=== PATIENT | female | born 1975 | race Caucasian/White ===

== ENCOUNTER → 2017-12-04 | Outpatient (CLI) | payer BC, OTHER ==
--- NOTE | 2017-12-05 09:16 | Diagnostic Imaging Report ---
Indication: Routine screening. Comparison is made to prior exam from 11/29/2015 and 09/02/2013. 2-D and 3-D bilateral screening mammography was performed with CAD. Both breasts remain heterogeneously dense, limiting the sensitivity of mammography. The parenchymal pattern is stable. No mass or malignant-appearing microcalcifications are seen. The axilla are unremarkable. Impression: BI-RADS category 1. No mammographic features suspicious for malignancy are identified. ACR BI-RADS Category 1: Negative. Result letter will be mailed to the patient. Note: At least 10% of breast cancer is not imaged by mammography. Dictated by: Dictated on workstation # [id number]
== END ==
LOC: RAD 14:51
PROVIDERS: ATTEND Nurse Practitioner Family
DX: Z12.31 Encounter for screening mammogram for malignant neoplasm of breast (principal)
CPT/HCPCS: 77067

== ENCOUNTER → 2019-04-30 | Outpatient (CLI) | payer BC ==
--- NOTE | 2019-04-30 17:47 | Diagnostic Imaging Report ---
EXAMINATION: Digital mammogram bilateral screening. INDICATION: Screening. COMPARISON: This study was compared to the prior exams of 12/04/2017, 11/29/2015, and 09/02/2013. At this time, there are no current complaints. The current study was also evaluated with a Computer Aided Detection (CAD) system. 3-D tomosynthesis was also performed and reviewed. FINDINGS: The fibroglandular tissue in both breasts is dense. This does limit the sensitivity of this exam. In the medial retroareolar region of the left breast, approximately 3 cm from the nipple, there is a 1 cm fairly well-defined oval density. This is best imaged on the tomographic views. This finding is most likely a benign process, but as it was not clearly evident on the prior study, I would recommend that a compression view of this area be obtained in the CC and MLO projections for further study. Ultrasound should also be performed. The right breast is unchanged. IMPRESSION: Additional mammographic views and ultrasound of the left breast would be recommended for further study. ACR BI-RADS Category 0: Incomplete. (Needs additional imaging evaluation). Result letter will be mailed to the patient. Note: At least 10% of breast cancer is not imaged by mammography. Dictated by: Dictated on workstation # [id number]
== END ==
LOC: RAD 07:56
PROVIDERS: ATTEND Nurse Practitioner Family
DX: Z12.31 Encounter for screening mammogram for malignant neoplasm of breast (principal)
CPT/HCPCS: 77067

== ENCOUNTER → 2019-05-05 | Outpatient (CLI) | payer BC ==
--- NOTE | 2019-05-05 14:05 | Diagnostic Imaging Report ---
INDICATION: Left breast density. Patient presents for additional views. COMPARISON: Correlation is made with the screening study from 04/30/2019. TECHNIQUE: Unilateral left 2D and 3D diagnostic mammography was performed including spot compression CC and ML views as well as a conventional 90 degree lateral view. FINDINGS: Additional views confirm the presence of a slightly ovoid circumscribed nodule in the retroareolar left breast slightly medial. This is 3 cm from the nipple. This has a benign appearance and likely represents a small cyst. No other masses are seen. IMPRESSION: Circumscribed density in the retroareolar and slightly medial left breast. Further evaluation with ultrasound is recommended and will be performed today. ACR BI-RADS Category 0: Incomplete. (Needs additional imaging evaluation). Result letter will be mailed to the patient. Note: At least 10% of breast cancer is not imaged by mammography. Dictated by: Dictated on workstation # [id number]
--- NOTE | 2019-05-05 14:15 | Diagnostic Imaging Report ---
INDICATION: Left breast density. This study is performed for further evaluation. COMPARISON: Correlation is made with the diagnostic mammogram from earlier this same day and the screening mammogram from 04/30/2019. FINDINGS: Sonographic interrogation of the retroareolar and slightly outer left breast was performed. There is a simple cyst at the 9 o'clock location of the left breast 2 cm from the nipple measuring 11 mm x 8 mm x 10 mm. This correlates in size and location to the mammographic density. No other mass is detected. IMPRESSION: Simple cyst in the retroareolar 9 o'clock location of the left breast corresponding with the mammographic density. The patient may return to routine annual screening mammography. ACR BI-RADS Category 2: Benign findings. Dictated by: Dictated on workstation # [id number]
== END ==
LOC: RAD 13:16
PROVIDERS: ATTEND Nurse Practitioner Family
DX: N60.02 Solitary cyst of left breast (principal)
CPT/HCPCS: 76642

== ENCOUNTER → 2020-05-03 | Outpatient (CLI) | payer BC ==
--- NOTE | 2020-05-03 12:54 | Diagnostic Imaging Report ---
INDICATION: Routine screening. Comparison is made with prior mammogram 04/30/2019 and 12/04/2017. 2-D and 3-D bilateral screening mammography was performed with CAD. Both breasts are heterogeneously dense, limiting the sensitivity of mammography. Overall parenchymal pattern appears stable. No spiculated mass or malignant appearing microcalcifications are seen. Axillae are unremarkable. IMPRESSION: BI-RADS Category 1 No mammographic features suspicious for malignancy are identified. ACR BI-RADS Category 1: Negative. Result letter will be mailed to the patient. Note: At least 10% of breast cancer is not imaged by mammography. Dictated by: Dictated on workstation # [id number]
== END ==
LOC: RAD 09:45
PROVIDERS: ATTEND Obstetrics & Gynecology
DX: Z12.31 Encounter for screening mammogram for malignant neoplasm of breast (principal)
CPT/HCPCS: 77063; 77067

== ENCOUNTER 2021-03-14 00:45 | Inpatient (IN) | payer BC ==
[~2021-03-14] VITALS: Ht 160 cm; Wt 89.2 kg
[2021-03-14] MEDS ORDERED: NORG1TAB75 PO (00:59)
[2021-03-14] MEDS ORDERED: ONDA-105 PO (00:59)
[2021-03-14] MEDS ORDERED: DEXA0.5T PO (00:59)
[2021-03-14] MEDS ORDERED: RT-ALBUINH INH (00:59)
[2021-03-14] MEDS ORDERED: RT-ALBUTEROL HFA 8.5 GM INHALER IH STA (01:55)
[2021-03-14] MEDS ORDERED: LACTATED RINGERS 1,000 ML IV ONE (02:00)
[2021-03-14] MEDS ORDERED: ONDANSETRON 4 MG/2 ML (SDV) Z0FRAN IVP ONE (02:00)
[2021-03-14 02:25] LABS: BASOPHILS % (AUTO) 0 % (0-10); EOSINOPHILS % (AUTO) 0 % (0-10); HEMATOCRIT 41 % (35-52); HEMOGLOBIN 13.6 g/dL (11.5-16.0); LYMPHOCYTES # (AUTO) 0.7 10^3/uL (1.0-4.0); LYMPHOCYTES % (AUTO) 21 % (12-44); MEAN CORPUSCULAR HEMOGLOBIN 31 pg (25-34); MEAN CORPUSCULAR HGB CONC 33 g/dL (32-36); MEAN CORPUSCULAR VOLUME 93 fL (80-99); MEAN PLATELET VOLUME 10.5 fL (9.0-12.2); MONOCYTES # (AUTO) 0.2 10^3/uL (0.0-1.0); MONOCYTES % (AUTO) 7 % (0-12); NEUTROPHILS # (AUTO) 2.3 10^3/uL (1.8-7.8); NEUTROPHILS % (AUTO) 71 % (42-75); PLATELET COUNT 252 10^3/uL (130-400); WHITE BLOOD COUNT 3.3 10^3/uL (4.3-11.0)
[2021-03-14 02:39] LABS: ALBUMIN 3.7 GM/DL (3.2-4.5); POTASSIUM 4.1 MMOL/L (3.6-5.0)
[2021-03-14 02:40] LABS: CALCIUM 8.6 MG/DL (8.5-10.1)
[2021-03-14 02:42] LABS: TOTAL PROTEIN 6.5 GM/DL (6.4-8.2)
[2021-03-14 02:43] LABS: BILIRUBIN,TOTAL 0.3 MG/DL (0.1-1.0)
[2021-03-14 02:45] LABS: CREATININE SERUM 0.73 MG/DL (0.60-1.30)
[2021-03-14 02:48] LABS: MAGNESIUM 2.1 MG/DL (1.6-2.4)
[2021-03-14] MEDS ORDERED: HOLD METFORMIN - RECEIVED CONTRAST 20 ML VIAL IV SCH (03:15)
[2021-03-14] MEDS ORDERED: NS 100 ML (IVPB) BAG IV ONE (03:15)
[2021-03-14] MEDS ORDERED: IOHEXOL 350 MG/ML 100 ML (OMNIPAQUE 350) VIAL IV ONE (03:15)
[2021-03-14] MEDS ORDERED: AZITHROMYCIN INJECTION 500 MG in NS (IVPB) 250 ML IV ONE (04:45)
--- NOTE | 2021-03-14 05:21 | ED General ---
General Chief Complaint: COVID19 Suspect/Confirmed Stated Complaint: COVID+ 03-10-,SOB,POSS FEVER,COUGH Nursing Triage Note: covid + 03/10/21, increased soa tonight. Source of Information: Patient Exam Limitations: No Limitations History of Present Illness Date Seen by Provider: Mar 14, 2021 Time Seen by Provider: 01:50 Initial Comments This 45-year-old woman presents to the emergency room with complaints of increased shortness of breath and nausea and vomiting after being diagnosed with COVID-19 on March 10. She was having trouble sleeping due to the shortness of breath. She has some chest pain when coughing and some discomfort in her upper back. She has not been monitoring her oxygen saturations at home. Saturations on initial assessment of fluctuating in the 91 to 93% range. She has been prescribed steroids and an inhaler from the clinic. She has monoclonal antibody therapy scheduled for . She did not receive a COVID-19 vaccine because she "heard too many horror stories about the vaccine". Allergies and Home Medications Allergies Coded Allergies: No Known Drug Allergies (Verified , 12/22/07) Patient Home Medication List Home Medication List Reviewed: Yes Albuterol Sulfate (Proventil Hfa) 6.7 Gm Hfa.aer.ad, (Reported) Entered as Reported by: HERMINIO SAUCEDO on 03/14/2158 Last Action: Reviewed Dexamethasone (Dexamethasone) 0.5 Mg Tablet, (Reported) Entered as Reported by: HERMINIO SAUCEDO on 03/14/2158 Last Action: Held Norgestimate-Ethinyl Estradiol (Estarylla 0.25-0.035 mg Tablet) 1 Each Tablet, (Reported) Entered as Reported by: HERMINIO SAUCEDO on 03/14/2158 Last Action: Held Ondansetron HCl (Ondansetron HCl) 4 Mg Tablet, (Reported) Entered as Reported by: HERMINIO SAUCEDO on 03/14/2158 Last Action: Reviewed Review of Systems Review of Systems Constitutional: fever EENTM: no symptoms reported Respiratory: see HPI Cardiovascular: no symptoms reported Gastrointestinal: see HPI Genitourinary: no symptoms reported : No Musculoskeletal: see HPI Skin: no symptoms reported Psychiatric/Neurological: No Symptoms Reported Hematologic/Lymphatic: No Symptoms Reported Immunological/Allergic: no symptoms reported Past Yqldhvw-Utgzvd-Awbzem Hx Patient Social History Tobacco Use?: No Use of E-Cig and/or Vaping dev: No Substance use?: No Alcohol Use?: No Pt feels they are or have been: No Past Medical History Surgery/Hospitalization HX: covid +03/10/21 Surgeries: No Respiratory: Yes (COVID-, February 2021) Cardiac: No Neurological: No : No Genitourinary: No Gastrointestinal: No Musculoskeletal: No Endocrine: No HEENT: No Cancer: No Psychosocial: No Physical Exam Vital Signs Vital Signs - First Documented 03/14/21 00:55 Temp 37.6 Pulse 115 Resp 20 B/P (MAP) 137/96 (110) Pulse Ox 92 O2 Delivery Room Air Capillary Refill : Less Than 3 Seconds Height, Weight, BMI Height: '" Weight: lbs. oz. 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, 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 Norm as Tested Skin: Normal Color, Warm/Dry Progress/Results/Core Measures Suspected Sepsis SIRS Temperature: Pulse: 115 Respiratory Rate: 20 Laboratory Tests 03/14/21 02:09: White Blood Count 3.3L Blood Pressure 137 /96 Mean: 110 Laboratory Tests 03/14/21 02:09: Creatinine 0.73, Platelet Count 252, Total Bilirubin 0.3 Results/Orders Lab Results Laboratory Tests Test 03/14/21 02:09 Range/Units White Blood Count 3.3 L 4.3-11.0 10^3/uL Red Blood Count 4.42 3.80-5.11 10^6/uL Hemoglobin 13.6 11.5-16.0 g/dL Hematocrit 41 35-52 % Mean Corpuscular Volume 93 80-99 fL Mean Corpuscular Hemoglobin 31 25-34 pg Mean Corpuscular Hemoglobin Concent 33 32-36 g/dL Red Cell Distribution Width 12.6 10.0-14.5 % Platelet Count 252 130-400 10^3/uL Mean Platelet Volume 10.5 9.0-12.2 fL Immature Granulocyte % (Auto) 0 % Neutrophils (%) (Auto) 71 42-75 % Lymphocytes (%) (Auto) 21 12-44 % Monocytes (%) (Auto) 7 0-12 % Eosinophils (%) (Auto) 0 0-10 % Basophils (%) (Auto) 0 0-10 % Neutrophils # (Auto) 2.3 1.8-7.8 10^3/uL Lymphocytes # (Auto) 0.7 L 1.0-4.0 10^3/uL Monocytes # (Auto) 0.2 0.0-1.0 10^3/uL Eosinophils # (Auto) 0.0 0.0-0.3 10^3/uL Basophils # (Auto) 0.0 0.0-0.1 10^3/uL Immature Granulocyte # (Auto) 0.0 0.0-0.1 10^3/uL D-Dimer 0.68 H 0.00-0.49 UG/ML Sodium Level 139 135-145 MMOL/L Potassium Level 4.1 3.6-5.0 MMOL/L Chloride Level 103 98-107 MMOL/L Carbon Dioxide Level 22 21-32 MMOL/L Anion Gap 14 5-14 MMOL/L Blood Urea Nitrogen 7 7-18 MG/DL Creatinine 0.73 0.60-1.30 MG/DL Estimat Glomerular Filtration Rate 87 BUN/Creatinine Ratio 10 Glucose Level 100 70-105 MG/DL Calcium Level 8.6 8.5-10.1 MG/DL Corrected Calcium 8.8 8.5-10.1 MG/DL Magnesium Level 2.1 1.6-2.4 MG/DL Total Bilirubin 0.3 0.1-1.0 MG/DL Aspartate Amino Transf (AST/SGOT) 40 H 5-34 U/L Alanine Aminotransferase (ALT/SGPT) 48 0-55 U/L Alkaline Phosphatase 81 40-136 U/L C-Reactive Protein High Sensitivity 7.35 H 0.00-0.50 MG/DL Total Protein 6.5 6.4-8.2 GM/DL Albumin 3.7 3.2-4.5 GM/DL Procalcitonin 0.05 <0.10 NG/ML Serum Test, Qualitative NEGATIVE NEGATIVE My Orders Orders - DAVEY PLATA MD Cbc With Automated Diff (03/14/21 01:55) Comprehensive Metabolic Panel (03/14/21 01:55) Hs C Reactive Protein (03/14/21 01:55) Fibrin Degradation Products (03/14/21 01:55) Procalcitonin (Pct) (03/14/21 01:55) Magnesium (03/14/21 01:55) Ed Iv/Invasive Line Start (03/14/21 01:55) Lactated Ringers (Lr 1000 Ml Iv Solution (03/14/21 02:00) Ondansetron Injection (Zofran Injectio (03/14/21 02:00) Albuterol Inhaler (Albuterol) (03/14/21 01:55) Hcg,Qualitative Serum (03/14/21 01:59) Ct Angio Chest W (03/14/21 02:50) Iohexol Injection (Omnipaque 350 Mg/Ml 1 (03/14/21 03:15) Received Contrast (Hold Metformin- Contr (03/14/21 03:15) Ns (Ivpb) (Sodium Chloride 0.9% Ivpb Bag (03/14/21 03:15) Dexamethasone Injection (Decadron Inje (03/14/21 04:45) Azithromycin Injection (Zithromax Inject (03/14/21 04:45) Medications Given in ED Current Medications Medications Dose Ordered Sig/Trey Route Start Time Stop Time Status Last Admin Dose Admin Azithromycin 500 mg/Sodium Chloride 250 ml @ 250 mls/hr ONCE ONCE IV 03/14/21 04:45 03/14/21 05:44 DC 03/14/21 05:34 250 MLS/HR Dexamethasone Sodium Phosphate 6 mg ONCE ONCE IV 03/14/21 04:45 03/14/21 04:47 DC 03/14/21 05:34 6 MG Iohexol 100 ml ONCE ONCE IV 03/14/21 03:15 03/14/21 03:17 DC 03/14/21 03:36 100 ML Lactated Ringer's 1,000 ml @ 0 mls/hr Q0M ONCE IV 03/14/21 02:00 03/14/21 02:01 DC 03/14/21 02:13 0 MLS/HR Ondansetron HCl 8 mg ONCE ONCE IVP 03/14/21 02:00 03/14/21 02:01 DC 03/14/21 02:13 8 MG Sodium Chloride 100 ml ONCE ONCE IV 03/14/21 03:15 03/14/21 03:17 DC 03/14/21 03:36 80 ML Vital Signs/I&O 03/14/21 00:55 Temp 37.6 Pulse 115 Resp 20 B/P (MAP) 137/96 (110) Pulse Ox 92 O2 Delivery Room Air Capillary Refill : Less Than 3 Seconds Blood Pressure Mean: 110 Progress Note : Time: 05:25 Progress Note Patient was experiencing borderline hypoxia early in her ER stay. This reason D-dimer was added to the evaluation. D-dimer was mildly elevated and she subsequently underwent CT angiogram. Covid pneumonia was noted but there was no evidence of pulmonary embolus. During the course of her evaluation her oxygen saturations trended downward. She was eventually persistently in the 89 to 91% range despite using an inhaler. I became increasingly uncomfortable with the thought of her returning home with declining oxygen saturations. We discussed options which included attempting to obtain outpatient oxygen support for home use versus admission. Since she appears to be in a declining status, she and I agree that admission is in her best interest. I have discussed the situation with Dr. Salazar. Patient is being treated with dexamethasone and a azithromycin. Oxygen was supplied at 2 L/min nasal cannula. This improved her oxygen saturations to the mid 90s and she was feeling much improved with oxygen support. Nausea was treated with Zofran and she was given a liter of IV fluid. Patient requests full CODE STATUS. Diagnostic Imaging Diagonstic Imaging: CT Plain Films/CT/US/NM/MRI: chest Comments CT angiogram of the chest reviewed by me and stat rad report reviewed. There were scattered opacities consistent with Covid pneumonia. No evidence of pulmonary embolus. Departure Communication (Admissions) Time/Spoke to Admitting Phy: 04:20 Dr. Salazar Impression Primary Impression: Pneumonia due to COVID-19 virus Additional Impressions: Nausea & vomiting Qualified Codes: R11.2 - Nausea with vomiting, unspecified Hypoxia Disposition: ADMITTED INPATIENT Condition: Stable Admissions Decision to Admit Reason: Admit from ER (General) Decision to Admit/Date: Mar 14, 2021 Time/Decision to Admit Time: 04:15 Departure-Patient Inst. Referrals: EDSON SALAZAR MD (PCP/Family) Primary Care Physician Copy Copies To 1: EDSON SALAZAR MD, JOSHUA T MD Mar 14, 2021 05:21
--- NOTE | 2021-03-14 05:36 | Diagnostic Imaging Report ---
PROCEDURE: CT angiography of the chest with contrast. TECHNIQUE: Multiple contiguous axial images were obtained through the chest after uneventful bolus administration of intravenous contrast. 3D reconstructed CTA MIP acquisitions were also performed. Auto Exposure Controls were utilized during the CT exam to meet ALARA standards for radiation dose reduction. INDICATION: Shortness of breath There are patchy alveolar infiltrates in both lungs. There are no effusions or pneumothoraces. There is no hilar or mediastinal lymphadenopathy. There is no evidence of right ventricular strain. There are no pulmonary emboli. Aorta is unremarkable. IMPRESSION: Multifocal patchy alveolar infiltrates in the periphery of both lungs typical of Covid pneumonia. No evidence for pulmonary embolism. I agree with preliminary interpretation. Dictated by: Dictated on workstation # [id number]
[2021-03-14] MEDS ORDERED: RT-ALBUTEROL HFA 8.5 GM INHALER IH PRN ×2 (08:30→11:00)
[2021-03-14] MEDS ORDERED: ONDANSETRON 4 MG/2 ML (SDV) Z0FRAN IV PRN (08:30)
[2021-03-14] MEDS ORDERED: ACETAMINOPHEN 325 MG TABLET PO PRN (08:30)
--- NOTE | 2021-03-14 08:48 | History & Physical ---
RASTA ESTRADA MED STUDENT 03/14/21 0848: History of Present Illness History of Present Illness Reason for visit/HPI Pt is a 45y/o F known to Dr. Salazar through clinic who presented to the ER this morning with cc increasing SOB and nausea. Pt first had cough and SOB on 03/07, then was subsequently diagnosed with COVID-19 on 03/10. Pts SOB got worse last night - waking her from sleep with increased nausea. This caused her to go to the ER. Her O2 sat at ER was 91-93% on room, after albuterol neb O2 decreased slighly to 89-91% on room. Pt had elevated D-dimer - subsequent CTA ruled-out PE, and confirmed COVID PNA. Her O2 sat was stable in mid-90s on 2LPM - pt was given IV decadron, zithromax, and zofran. Pt was subsequently admitted to the gen/surg floor due to new onset O2 requirement. During my counter this morning pt was without respiratory distress or intercostal retractions. Pt appeared comfortable on 2LPM. Pt states she had some chest pain that is only exacerbated by coughing, not with deep inspiration. Pt denies headache, constipation, diarrhea, palpitations or dysuria. Date of Admission Mar 14, 2021 at 05:13 Date Seen by a Provider: Mar 14, 2021 Time Seen by a Provider: 08:15 I consulted on this patient on 03/14/21 08:40 Attending Physician Edson Salazar MD Admitting Physician Edson Salazar MD Consult Allergies and Home Medications Allergies Coded Allergies: No Known Drug Allergies (Verified , 03/14/21) Patient Home Medication List Albuterol Sulfate (Proventil Hfa) 6.7 Gm Hfa.aer.ad, 1-2 PUFF INH Q4H PRN for SHORTNESS OF BREATH, (Reported) Entered as Reported by: HERMINIO SAUCEDO on 03/14/2158 Last Action: Held Dexamethasone (Dexamethasone) 0.5 Mg Tablet, 0.5 MG PO BID, (Reported) Entered as Reported by: HERMINIO SAUCEDO on 03/14/2158 Last Action: Reviewed Fesoterodine Fumarate (Toviaz) 4 Mg Tab.sr.24h, 4 MG PO 1800 W/DINNER, (Reported) Entered as Reported by: DARCY HOLGUIN on 9/22/21 1132 Last Action: Held Ibuprofen (Ibuprofen) 200 Mg Capsule, 400-600 MG PO Q8H PRN for PAIN-MILD (1-4) OR TEMPATURE, (Reported) Entered as Reported by: DARCY HOLGUIN on 03/14/211131 Last Action: Held Nitrofurantoin Macrocrystal (Nitrofurantoin) 100 Mg Capsule, 100 MG PO 1800 W/DINNER, (Reported) Entered as Reported by: DARCY HOLGUIN on 03/14/211131 Last Action: Held Norgestimate-Ethinyl Estradiol (Estarylla 0.25-0.035 mg Tablet) 1 Each Tablet, 1 EA PO 1800, (Reported) Entered as Reported by: HERMINIO SAUCEDO on 03/14/2158 Last Action: Reviewed Ondansetron HCl (Ondansetron HCl) 4 Mg Tablet, 4 MG PO Q6H PRN for NAUSEA/ VOMITING-1ST LINE, (Reported) Entered as Reported by: HERMINIO SAUCEDO on 03/14/2158 Last Action: Held Past Rottlrm-Nbsalq-Tfhlee Hx Patient Social History Tobacco Use?: No Use of E-Cig and/or Vaping dev: No Substance use?: No Alcohol Use?: No Pt feels they are or have been: No Immunizations Up To Date Tetanus Booster (TDap): Unknown Current Status Advance Directives: No Communicates: Verbally Primary Language: [place] Preferred Spoken Language: [place] Implanted or Applied Medical D: None Review of Systems Constitutional: No diaphoresis, No dizziness, No fever, No weakness EENTM: No hearing loss, No vision loss Respiratory: cough, dyspnea on exertion; No hemoptysis; short of breath Cardiovascular: chest pain (only during coughing spells ); No Hx of Intervention, No palpitations, No syncope Gastrointestinal: No abdominal pain, No constipation, No diarrhea Genitourinary: No dysuria, No incontinence : No Musculoskeletal: back pain (upper back pain ); No joint swelling Skin: No change in color, No lesions Psychiatric/Neurological: Denies Headache, Denies Tremors Psych: no AMS, no psychosis or change in mood. Physical Exam Vital Signs Vital Signs - First Documented 03/14/21 03/14/21 00:55 07:57 Temp 37.6 Pulse 115 Resp 20 B/P (MAP) 137/96 (110) Pulse Ox 92 O2 Delivery Room Air O2 Flow Rate 2.00 Capillary Refill : Less Than 3 Seconds Height, Weight, BMI Height: '" Weight: lbs. oz. kg; 33.00 BMI Method: Assessment/Plan Assessment and Plan Acute Hypoxemic Respiratory Failure 2/2 COVID-PNA New onset O2 requirement - pt stable on 2LPM this am. + COVID PCR 03/10. First Symptomatic 03/07. Pt not COVID vaccinated. s/p Decadron and Zithromax in ER IS, Albuterol neb, MAT protocol. Decadron PO 6mg qd. Hypercoagulable state 2/2 COVID-19 inf 0.68 D-dimer Neg 03/14 CTA 40mg Lovenox. DVT prophylaxis: 40mg lovenox, SCD, encouraged pt ambulation in room. GI prohylaxis: pepcid Lines and Tubes: PIV Admission Diagnosis Reason for Inpatient Admission: Acute Hypoxemic Respiratory Failure 2/2 COVID-PNA EDSON SALAZAR MD 03/14/212138: History of Present Illness History of Present Illness Reason for visit/HPI PT IS A 45 Y/O FEMALE WHO IS KNOWN TO MY CLINIC. SHE PRESENTED TO THE HOSPITAL AFTER HAVING AN ACUTE EPISODE OF SHORTNESS OF BREATH WITH NAUSEA LAST NIGHT. SHE WAS FIRST STRUCK ILL WITH COVID SYMPTOMS AROUND 03/07/2021, DIAGNOSED WITH COVID ON 03/10/2021. UPON EVALUATION IN THE ER SHE WAS FOUND TO HAVE AN OXYGEN SATURATION OF 91%, AND AFTER A NEBULIZER TREATMENT HER OXYGEN DROPPED TO 89%. PT WAS ALSO FOUND TO HAVE AN ELEVATED D-DIMER - NEGATIVE CTA. THIS MORNING SHE REPORTS THAT SHE FEELS BETTER THAN ON ADMISSION, JUST EXTREMELY FATIGUED. SHE DENIES ABDOMINAL PAIN, NAUSEA, CHEST PAIN, HAS BEEN HAVING ISSUES FOR A FEW MONTHS WITH HER MENSTRUAL CYCLES, AND HAS BEEN TAKING HER CONTROL REGULARLY. Date of Admission 03/14/2021 Date Seen by a Provider: Mar 14, 2021 Time Seen by a Provider: 08:55 Attending Physician EDSON SALAZAR MD Admitting Physician EDSON SALAZAR MD Allergies and Home Medications Allergies Coded Allergies: No Known Drug Allergies (Verified , 03/14/21) Patient Home Medication List Home Medication List Reviewed: Yes Albuterol Sulfate (Proventil Hfa) 6.7 Gm Hfa.aer.ad, 1-2 PUFF INH Q4H PRN for SHORTNESS OF BREATH, (Reported) Entered as Reported by: HERMINIO SAUCEDO on 03/14/2158 Last Action: Held Dexamethasone (Dexamethasone) 0.5 Mg Tablet, 0.5 MG PO BID, (Reported) Entered as Reported by: HERMINIO SAUCEDO on 03/14/2158 Last Action: Reviewed Fesoterodine Fumarate (Toviaz) 4 Mg Tab.sr.24h, 4 MG PO 1800 W/DINNER, (Reported) Entered as Reported by: DARCY HOLGUIN on 03/14/211131 Last Action: Held Ibuprofen (Ibuprofen) 200 Mg Capsule, 400-600 MG PO Q8H PRN for PAIN-MILD (1-4) OR TEMPATURE, (Reported) Entered as Reported by: DARCY HOLGUIN on 03/14/211131 Last Action: Held Nitrofurantoin Macrocrystal (Nitrofurantoin) 100 Mg Capsule, 100 MG PO 1800 W/DINNER, (Reported) Entered as Reported by: DARCY HOLGUIN on 03/14/211131 Last Action: Held Norgestimate-Ethinyl Estradiol (Estarylla 0.25-0.035 mg Tablet) 1 Each Tablet, 1 EA PO 1800, (Reported) Entered as Reported by: HERMINIO SAUCEDO on 03/14/2158 Last Action: Reviewed Ondansetron HCl (Ondansetron HCl) 4 Mg Tablet, 4 MG PO Q6H PRN for NAUSEA/VOMITING-1ST LINE, (Reported) Entered as Reported by: HERMINIO SAUCEDO on 03/14/2158 Last Action: Held Past Bnojwez-Fksyiv-Gvaeba Hx Patient Social History Marrital Status: Number of Children: 1 Number of living children: 1 Living Status: LIVES AT HOME WITH SPOUSE AND SON Employed/Student: employed ([employer]) Tobacco Use?: No Smoking Status: Never a Smoker Use of E-Cig and/or Vaping dev: No Substance use?: No Seasonal Allergies Seasonal Allergies: No Current Status status: No status: No Communicates: Verbally Primary Language: [place] Preferred Spoken Language: [place] Is interpretation needed?: No Implanted or Applied Medical D: None Past Medical History Currently Using CPAP: No Currently Using BIPAP: No Sexually Transmitted Disease: No HIV/AIDS: No PT HAS NOT HAD SURGERY, NO OVERALL HEALTH ISSUES Family Medical History Reviewed Nursing Family Hx Hypertension Review of Systems Constitutional: No diaphoresis; fever (INTERMITTENT), malaise EENTM: No hearing loss, No vision loss, No hoarseness, No throat pain, No throat swelling Respiratory: cough, dyspnea on exertion; No hemoptysis; short of breath Cardiovascular: No chest pain (only during coughing spells ), No Hx of Intervention, No palpitations Gastrointestinal: No abdominal pain, No constipation, No diarrhea, No nausea, No vomiting Genitourinary: No dysuria : No Musculoskeletal: back pain (upper back pain ); No joint swelling; muscle weakness Skin: No lesions, No rash Psychiatric/Neurological: Denies Anxiety, Denies Depressed, Denies Headache All Other Systems Reviewed Negative Unless Noted: Yes Physical Exam General Appearance: WD/WN, Mild Distress, Other Eyes: Bilateral Eye Normal Inspection, Bilateral Eye PERRL, Bilateral Eye EOMI HEENT: PERRL/EOMI, Pharynx Normal Neck: Full Range of Motion, Normal Inspection, Non Tender, Supple Respiratory: Chest Non Tender, No Accessory Muscle Use, No Respiratory Distress, Crackles, Decreased Breath Sounds Cardiovascular: Regular Rate, Rhythm, Normal Peripheral Pulses Gastrointestinal: Normal Bowel Sounds, No Organomegaly, No Pulsatile Mass, Non Tender, Soft Rectal: Deferred Back: Normal Inspection, No CVA Tenderness, No Vertebral Tenderness Extremity: Normal Capillary Refill, Normal Inspection, Normal Range of Motion, Non Tender, No Calf Tenderness, No Pedal Edema Neurologic/Psychiatric: Alert, Oriented x3, No Motor/Sensory Deficits, Normal 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 (BASED ON PROTOCOL, EVERARDO DOES NOT QUALIFY FOR OTHER TREATMENT CONSIDERATIONS AT THIS TIME) - ANTICIPATE PT TO BE IN HOSPITAL FOR AT LEAST ANOTHER 48 - 72 HOURS. HYPOCOAGULABLE STATE DUE TO CHRONIC HORMONE USE, COVID INFECTION - LOVENOX AND SCD'S - ADVISED PT THAT WE WILL HOLD HER CONTROL FOR THE NEXT FEW MONTHS WEAKNESS - WILL START AMBULATING IN ROOM MYALGIAS - SHOULD IMPROVE WITH HYDRATION DVT PROPHYLAXIS WITH LOVENOX AND SCD'S GI PROPHYLAXIS WITH PEPCID Admission Diagnosis ACUTE RESPIRATORY DISTRESS DUE TO COVID-19 INFECTION COUGH COVID PNEUMONIA HYPOXIA HYPOCOAGULABLE STATE DUE TO CHRONIC HORMONE USE, COVID INFECTION WEAKNESS MYALGIAS Admission Status: Inpatient Order (span 2 midnights) Reason for Inpatient Admission: INPT ADMISSION FOR COVID WILL REQUIRE AT LEAST 48 - 72 HOURS FOR IV STEROIDS, BREATHING TREATMENTS AND STABILIZATION. Supervisory-Addendum Brief Verification & Attestation Participated in pt care: history, MDM, physical Personally performed: exam, history, MDM, supervision of care Care discussed with: Medical Student Procedures: n/a Results interpretation: Verified all documentation SEE MY DOCUMENTATION FOR FULL DETAILS RASTA ESTRADA MED STUDENT Mar 14, 2021 08:48 EDSON SALAZAR MD Mar 14, 2021 21:39
[2021-03-14] MEDS: LACTATED RINGERS 1,000 ML IV SCH ×2 (10:00→18:37)
[2021-03-14] MEDS: FAMOTIDINE 20 MG (PEPCID) TABLET PO SCH ×2 (10:00→19:39)
[2021-03-14] MEDS: ENOXAPARIN 40 MG/0.4 ML (LOVENOX) SYR SC SCH (10:00)
[2021-03-14 10:47] VITALS: BP 115/79
[2021-03-14] MEDS ORDERED: FESO4TAB PO (11:32)
[2021-03-14] MEDS ORDERED: NITR100C PO (11:32)
[2021-03-14] MEDS ORDERED: IBUP-2185 PO (11:32)
[2021-03-14 12:00] VITALS: BP_SYST 119
[2021-03-14 16:39] VITALS: BP 124/73
[2021-03-14 19:26] VITALS: BP 121/56
[2021-03-14] MEDS: RT-ALBUTEROL HFA 8.5 GM INHALER IH SCH (20:38)
[2021-03-15] VITALS: BP 116/66
[2021-03-15] MEDS: ACETAMINOPHEN 325 MG TABLET PO SCH ×3 (02:05→17:46)
[2021-03-15] MEDS: LACTATED RINGERS 1,000 ML IV SCH ×3 (03:42→22:24)
[2021-03-15 04:44] VITALS: BP 115/64
--- NOTE | 2021-03-15 07:17 | Diagnostic Imaging Report ---
INDICATION: Covid pneumonia. Frontal chest obtained at 04:10 a.m. There is no prior study for comparison. FINDINGS: Heart and mediastinal silhouette are normal in appearance. There is no pneumothorax or pleural fluid. There are patchy infiltrates in the perihilar regions on both sides, suspicious for pneumonia. These infiltrates are of moderate severity. IMPRESSION: Patchy perihilar infiltrates are present compatible with pneumonia. There is no pneumothorax or pleural fluid. Follow-up is recommended. Dictated by: Dictated on workstation # [id number]
[2021-03-15] MEDS: RT-ALBUTEROL HFA 8.5 GM INHALER IH SCH ×2 (07:26→19:13)
[2021-03-15 08:00] VITALS: BP 122/59
[2021-03-15] MEDS: AZITHROMYCIN 250 MG/NS 250 ML IVPB IV SCH ×2 (09:31)
[2021-03-15] MEDS: ENOXAPARIN 40 MG/0.4 ML (LOVENOX) SYR SC SCH (09:31)
[2021-03-15] MEDS: FAMOTIDINE 20 MG (PEPCID) TABLET PO SCH ×2 (09:31→22:22)
[2021-03-15 16:55] VITALS: BP 126/79
[2021-03-15 19:48] VITALS: BP 126/77
[2021-03-15] MEDS: MELATONIN 3 MG TABLET PO SCH (22:23)
[2021-03-16] VITALS (10 sets, daily range): BP systolic 85–123; BP diastolic 7–75
[2021-03-16] MEDS: ACETAMINOPHEN 325 MG TABLET PO SCH ×3 (00:46→16:23)
[2021-03-16] MEDS: PROMETHAZINE/ CODEINE SYRUP 5 ML UDC PO PRN ×2 (00:47→22:46)
[2021-03-16] MEDS: AZITHROMYCIN 250 MG/NS 250 ML IVPB IV SCH ×2 (09:40)
[2021-03-16] MEDS: ENOXAPARIN 40 MG/0.4 ML (LOVENOX) SYR SC SCH (09:40)
[2021-03-16] MEDS: FAMOTIDINE 20 MG (PEPCID) TABLET PO SCH ×2 (09:40→22:45)
[2021-03-16] MEDS: LACTATED RINGERS 1,000 ML IV SCH ×2 (10:08→22:45)
--- NOTE | 2021-03-16 10:11 | Progress Note ---
Subjective Subjective Date Seen by Provider: Mar 15, 2021 Time Seen by Provider: 08:50 PT REPORTS THAT SHE DID NOT HAVE A GOOD NIGHT LAST NIGHT. SHE STATES THAT SHE WAS HAVING INSOMNIA AND UNCOMFORTABLE, AND DID NOT SLEEP VERY MUCH LAST NIGHT. SHE STATES THAT SHE IS FEELING A LITTLE BIT BETTER THIS MORNING. SHE DENIES ABDOMINAL PAIN, NAUSEA, HAS NOT HAD A BOWEL MOVEMENT. SHE REPORTS THAT SHE IS ANXIOUS, NERVOUS ABOUT WHAT IS GOING TO HAPPEN TO HER PHYSICALLY FROM HAVING COVID. Review of Systems General: No Chills; Fatigue, Malaise, Appetite (DECREASED) HEENT: No Head Aches Pulmonary: Dyspnea, Cough Cardiovascular: No: Chest Pain, Palpitations Gastrointestinal: No: Nausea, Vomiting, Abdominal Pain, Diarrhea Genitourinary: No Dysuria; Frequency Musculoskeletal: No: back pain, leg pain Neurological: Weakness; No: Confusion All Other Systems Reviewed All Other Systems Reviewed: Yes Objective Exam Vital Signs Vital Signs Date Time Temp Pulse Resp B/P (MAP) Pulse Ox O2 Delivery O2 Flow Rate FiO2 03/16/21 09:22 91 Nasal Cannula 4.00 03/16/21 09:13 93 Nasal Cannula 3.00 03/16/21 09:10 92 Nasal Cannula 6.00 03/16/21 09:06 97 94 Nasal Cannula 6.00 03/16/21 09:00 37.3 111/75 (87) 91 OxyMask 10.00 03/16/21 08:55 93 71 117/71 (86) 86 OxyMask 10.00 03/16/21 08:53 93 OxyMask 10.00 03/16/21 08:52 91 OxyMask 15.00 03/16/21 08:50 37.6 75 85/40 (55) 89 Nasal Cannula 10.00 03/16/21 08:40 37.5 109 24 113/74 (87) 89 Nasal Cannula 3.00 03/16/21 03:59 36.3 92 20 123/70 (87) 95 Nasal Cannula 3.00 03/16/21 00:20 36.7 98 21 122/73 (89) 98 Nasal Cannula 3.00 03/15/21 20:00 Nasal Cannula 3.00 03/15/21 19:48 36.3 107 20 126/77 (93) 92 Nasal Cannula 3.00 03/15/21 19:13 95 Nasal Cannula 3.00 03/15/21 16:55 102 20 126/79 (95) 94 Nasal Cannula 3.00 03/15/21 12:00 104 18 95 Nasal Cannula 3.00 I & O 03/16/21 07:00 Intake Total 2160 ml Balance 2160 ml General Appearance: No Apparent Distress, WD/WN, Other (ANXIOUS) Eyes: Bilateral Eye Normal Inspection, Bilateral Eye PERRL, Bilateral Eye EOMI HEENT: PERRL/EOMI, Pharynx Normal Neck: Full Range of Motion, Normal Inspection, Non Tender, Supple Respiratory: Chest Non Tender, No Accessory Muscle Use, No Respiratory Distress, Crackles, Decreased Breath Sounds Cardiovascular: Regular Rate, Rhythm, Normal Peripheral Pulses Gastrointestinal: Normal Bowel Sounds, No Organomegaly, No Pulsatile Mass, Non Tender, Soft Rectal: Deferred Extremity: Normal Capillary Refill, Normal Inspection, Normal Range of Motion, Non Tender, No Calf Tenderness, No Pedal Edema Neurologic/Psychiatric: Alert, Oriented x3, No Motor/Sensory Deficits, Normal Mood/Affect, 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 Norm as Tested Skin: Normal Color, Warm/Dry Lymphatic: No Adenopathy Results Lab Laboratory Tests 03/16/21 08:55: Glucometer 102 Assessment/Plan Assessment/Plan Admission Dx ACUTE RESPIRATORY DISTRESS DUE TO COVID-19 INFECTION COUGH COVID PNEUMONIA HYPOXIA HYPOCOAGULABLE STATE DUE TO CHRONIC HORMONE USE, COVID INFECTION WEAKNESS MYALGIAS Assessment and Plan ACUTE RESPIRATORY DISTRESS DUE TO COVID-19 INFECTION COUGH COVID PNEUMONIA HYPOXIA 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 (BASED ON PROTOCOL, EVERARDO DOES NOT QUALIFY FOR OTHER TREATMENT CONSIDERATIONS AT THIS TIME) - ANTICIPATE PT TO BE IN HOSPITAL FOR AT LEAST ANOTHER 48 - 72 HOURS. HYPOCOAGULABLE STATE DUE TO CHRONIC HORMONE USE, COVID INFECTION - LOVENOX AND SCD'S - ADVISED PT THAT WE WILL HOLD HER CONTROL FOR THE NEXT FEW MONTHS WEAKNESS - WILL START AMBULATING IN ROOM MYALGIAS - SHOULD IMPROVE WITH HYDRATION DVT PROPHYLAXIS WITH LOVENOX AND SCD'S GI PROPHYLAXIS WITH PEPCID Admission Dx ACUTE RESPIRATORY DISTRESS DUE TO COVID-19 INFECTION COUGH COVID PNEUMONIA HYPOXIA HYPOCOAGULABLE STATE DUE TO CHRONIC HORMONE USE, COVID INFECTION WEAKNESS MYALGIAS Clinical Quality Measures Admission Status Admission Dx ACUTE RESPIRATORY DISTRESS DUE TO COVID-19 INFECTION COUGH COVID PNEUMONIA HYPOXIA HYPOCOAGULABLE STATE DUE TO CHRONIC HORMONE USE, COVID INFECTION WEAKNESS MYALGIAS EDSON FIORE MD Mar 16, 2021 10:11
--- NOTE | 2021-03-16 10:18 | Progress Note ---
Subjective Subjective Date Seen by Provider: Mar 16, 2021 Time Seen by Provider: 09:00 45 Y/O FEMALE WHO IS KNOWN TO ME FROM CLINIC. SHE PRESENTED TO THE HOSPITAL WITH COVID ON DAY 7 OF SYMPTOMS AND DAY 5 OF CONFIRMED DIAGNOSIS. - PHONE CALL AT 0850 THIS MORNING REPORTING THAT THE PATIENT WAS DOING WELL, GOT UP TO THE RESTROOM, FELT LIKE SHE WAS GOING TO PASS OUT AND SHE WAS LOWERED TO THE TOILET, BP WAS IN THE 80/50'S, OXYGEN AROUND 83%, AND SHE WAS PLACED ON 10 LITERS OXYGEN AND HELPED BACK TO HER CHAIR AT BEDSIDE. BY THE TIME THIS LEMON PICKER WAS IN THE ROOM, THE PATIENT WAS BACK TO OXYGEN LEVEL OF 92% ON 3 LITERS, WITH EFFORT OF MOVEMENT SHE DROPPED TO 88% SO SHE WAS BUMPED UP TO 4LITERS. PT DENIES ACUTE CHEST PAIN, BUT DOES HAVE SHORTNESS OF BREATH WITH CONVERSATION. SHE DENIES LEG PAIN, OR SWELLING. SHE REPORTS A SIGNIFICANT COUGHING EPISODE LAST NIGHT, BUT OTHERWISE HAD BEEN FEELING ABOUT THE SAME LEVEL OF ILLNESS ON ADMISSION. Review of Systems General: No Chills; Fatigue, Malaise, Appetite (DECREASED) HEENT: No Head Aches Pulmonary: Dyspnea, Cough Cardiovascular: No: Chest Pain, Palpitations Gastrointestinal: No: Nausea, Vomiting, Abdominal Pain, Diarrhea Genitourinary: No Dysuria; Frequency Musculoskeletal: No: back pain, leg pain Neurological: Weakness; No: Confusion All Other Systems Reviewed All Other Systems Reviewed: Yes Objective Exam Vital Signs Vital Signs Date Time Temp Pulse Resp B/P (MAP) Pulse Ox O2 Delivery O2 Flow Rate FiO2 03/16/21 09:22 91 Nasal Cannula 4.00 03/16/21 09:13 93 Nasal Cannula 3.00 03/16/21 09:10 92 Nasal Cannula 6.00 03/16/21 09:06 97 94 Nasal Cannula 6.00 03/16/21 09:00 37.3 111/75 (87) 91 OxyMask 10.00 03/16/21 08:55 93 71 117/71 (86) 86 OxyMask 10.00 03/16/21 08:53 93 OxyMask 10.00 03/16/21 08:52 91 OxyMask 15.00 03/16/21 08:50 37.6 75 85/40 (55) 89 Nasal Cannula 10.00 03/16/21 08:40 37.5 109 24 113/74 (87) 89 Nasal Cannula 3.00 03/16/21 03:59 36.3 92 20 123/70 (87) 95 Nasal Cannula 3.00 03/16/21 00:20 36.7 98 21 122/73 (89) 98 Nasal Cannula 3.00 03/15/21 20:00 Nasal Cannula 3.00 03/15/21 19:48 36.3 107 20 126/77 (93) 92 Nasal Cannula 3.00 03/15/21 19:13 95 Nasal Cannula 3.00 03/15/21 16:55 102 20 126/79 (95) 94 Nasal Cannula 3.00 03/15/21 12:00 104 18 95 Nasal Cannula 3.00 I & O 03/16/21 07:00 Intake Total 2160 ml Balance 2160 ml General Appearance: WD/WN, Moderate Distress, Other (ANXIOUS) Eyes: Bilateral Eye Normal Inspection, Bilateral Eye PERRL, Bilateral Eye EOMI HEENT: PERRL/EOMI, Pharynx Normal Neck: Full Range of Motion, Normal Inspection, Non Tender, Supple Respiratory: Chest Non Tender, No Accessory Muscle Use, No Respiratory Distress, Crackles, Decreased Breath Sounds Cardiovascular: Regular Rate, Rhythm, Normal Peripheral Pulses Gastrointestinal: Normal Bowel Sounds, No Organomegaly, No Pulsatile Mass, Non Tender, Soft Rectal: Deferred Extremity: Normal Capillary Refill, Normal Inspection, Normal Range of Motion, Non Tender, No Calf Tenderness, No Pedal Edema; No Calf Tenderness, No Inflammation, No Slow Capillary Refill, No Swelling Neurologic/Psychiatric: Alert, Oriented x3, Other (ANXIOUS) Skin: Pallor Lymphatic: No Adenopathy Results Lab Laboratory Tests 03/16/21 08:55: Glucometer 102 Assessment/Plan Assessment/Plan Admission Dx ACUTE RESPIRATORY DISTRESS DUE TO COVID-19 INFECTION COUGH COVID PNEUMONIA HYPOXIA HYPOCOAGULABLE STATE DUE TO CHRONIC HORMONE USE, COVID INFECTION WEAKNESS MYALGIAS Assessment and Plan ACUTE RESPIRATORY DISTRESS DUE TO COVID-19 INFECTION COUGH COVID PNEUMONIA HYPOXIA HYPOCOAGULABLE STATE DUE TO CHRONIC HORMONE USE, COVID INFECTION WEAKNESS MYALGIAS NEAR SYNCOPE HYPOTENSION WORSENING ACUTE RESPIRATORY DISTRESS DUE TO COVID-19 INFECTION WITH COUGH AND COVID PNEUMONIA WITH ACUTE HYPOXIA - PT ON DEXAMETHASONE, BREATHING TREATMENTS, AND AZITHROMYCIN ADDING ROCEPHIN TODAY ADDED ACTEMRA TODAY WELL WITH ACUTE EPISODE OF HYPOXIA - PT TO GO DOWN FOR STAT CT ANGIO OF CHEST TO LOOK FOR PULMONARY EMBOLISM - CONSULT WITH MANAGER OF REGULATORY AFFAIRS - DR. GERA HENSON - DISCUSSION OF CASE - AGREED WITH STAT CT ANGIO, ACTEMRA, CONTINUED STEROIDS, IF SYMPTOMS WORSEN WILL TRANSFER TO ICU. HYPOCOAGULABLE STATE DUE TO CHRONIC HORMONE USE, COVID INFECTION - LOVENOX AND SCD'S - ADVISED PT THAT WE WILL HOLD HER CONTROL FOR THE NEXT FEW MONTHS WEAKNESS - WAITING ON IMPROVED PULMONARY STATUS AT THIS TIME. MYALGIAS - SHOULD IMPROVE WITH HYDRATION ACUTELY WORSENING SYMPTOMS - I HAVE DISCUSSED THE PATIENT WITH HER SPOUSE, HE IS IN AGREEMENT WITH CURRENT MANAGEMENT PLAN, THANKFUL FOR THE PHONE CALL, REQUESTS UPDATES THINGS CHANGE. ADVISED PT AND SPOUSE THAT DR. MILLER IS CLINICAL LABORATORY TECHNOLOGIST FOR ME THIS WEEKEND. DVT PROPHYLAXIS WITH LOVENOX AND SCD'S GI PROPHYLAXIS WITH PEPCID Admission Dx ACUTE RESPIRATORY DISTRESS DUE TO COVID-19 INFECTION COUGH COVID PNEUMONIA HYPOXIA HYPOCOAGULABLE STATE DUE TO CHRONIC HORMONE USE, COVID INFECTION WEAKNESS MYALGIAS Clinical Quality Measures Admission Status Admission Dx ACUTE RESPIRATORY DISTRESS DUE TO COVID-19 INFECTION COUGH COVID PNEUMONIA HYPOXIA HYPOCOAGULABLE STATE DUE TO CHRONIC HORMONE USE, COVID INFECTION WEAKNESS MYALGIAS EDSON FIORE MD Mar 16, 2021 10:17
[2021-03-16] MEDS ORDERED: TOCILIZUMAB INJECTION (NON-FOR 600 MG in NS (IVPB) 70 ML IV ONE (10:45)
[2021-03-16 10:49] LABS: HEMATOCRIT 36 % (35-52); HEMOGLOBIN 11.5 g/dL (11.5-16.0); MEAN CORPUSCULAR HEMOGLOBIN 30 pg (25-34); MEAN CORPUSCULAR HGB CONC 32 g/dL (32-36); MEAN CORPUSCULAR VOLUME 94 fL (80-99); MEAN PLATELET VOLUME 9.9 fL (9.0-12.2); PLATELET COUNT 318 10^3/uL (130-400)
[2021-03-16] MEDS: RT-ALBUTEROL HFA 8.5 GM INHALER IH SCH ×2 (10:53→21:32)
--- NOTE | 2021-03-16 10:56 | Pulmonary Consultation ---
History of Present Illness History of Present Illness Date Seen by Provider: Mar 16, 2021 Time Seen by Provider: 10:15 Date of Admission Patient acknowledged, consented, and participated in this virtual visit which was conducted using real time audio/video. Thank you for asking us to see this patient for respiratory insufficiency and distress due to Covid pna. HPC: Recent events: Developed worsening hypoxia and hypotension this AM. Briefly required 10 LPM. Chest tightness. PMH: on BCPs. SH: smoking history N. FH: Non-contributory. No hx PEs. ROS: as in HPI. PE: Obese. VSS BP 117/71 RR O2 sat 96% on 4 LPM HEENT: No obvious masses, adenopathy or JVD. Chest: clear to auscultation. Diminished BS CV: RRR S1 S2 No murmur or added sounds. Abd: Non-tender. Bowel sounds Y. : Unremarkable. Gonzalez N. 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 No obvious focal findings. Extremities: Trace edema. Capillary refill < 3 seconds. Skin: unremarkable. Results: Elevated D-Dimer 0.68. Decreased WCC 3.3. CXR w B perihilar infilts. CTA Chest pending. A/P: Respiratory insufficiency/distress: Add Actemra. Available chart/ vitals / labs /images reviewed. Video assessment done using teleICU camera, rest of exam as per RN. Respiratory: Continue present management with Dex. Add Actemra 8 mg/kg IV. Monitor for increasing oxygenation needs and/or need for ICU transfer. Would consider transfer to ICU if O2 needs escalate rapidly, BP persistently dropping or CTA chest is positive for PE. Discussed with GIBRAN Washburn and Dr. Saucedo. Asked RN to reach out to eICU if any questions or concerns later. Time spent with patient/coordination of care with other health professionals (mins): 30 History of Present Illness See free text Allergies and Home Medications Allergies Coded Allergies: No Known Drug Allergies (Verified , 03/14/21) Home Medications Albuterol Sulfate 6.7 Gm Hfa.aer.ad, 1-2 PUFF INH Q4H PRN for SHORTNESS OF BREATH, (Reported) Dexamethasone 0.5 Mg Tablet, 0.5 MG PO BID, (Reported) FILLED 03-12-2021 #10/5 DAY SUPPLY Fesoterodine Fumarate 4 Mg Tab.sr.24h, 4 MG PO 1800 W/DINNER, (Reported) Ibuprofen 200 Mg Capsule, 400-600 MG PO Q8H PRN for PAIN-MILD (1-4) OR TEMPATURE, (Reported) Nitrofurantoin Macrocrystal 100 Mg Capsule, 100 MG PO 1800 W/DINNER, (Reported) Norgestimate-Ethinyl Estradiol 1 Each Tablet, 1 EA PO 1800, (Reported) Ondansetron HCl 4 Mg Tablet, 4 MG PO Q6H PRN for NAUSEA/VOMITING-1ST LINE, (Reported) Past Medical/Social/Family Hx Patient Social History Marrital Status: Number of Children: 1 Number of living children: 1 Living Status: LIVES AT HOME WITH SPOUSE AND SON Employed/Student: employed ([employer]) Tobacco Use?: No Smoking Status: Never a Smoker Smokeless Tobacco Frequency: Never a User Use of E-Cig and/or Vaping dev: No Substance use?: No Alcohol Use?: No Pt stated abuse/neglect: No Immunizations Up To Date Influenza Vaccine Up-to-Date: No; Not Current Tetanus Booster (TDap): Unknown Hepatitis A: No Hepatitis B: No TB Skin Test: None Current Status status: No status: No Advance Directives: No Communicates: Verbally Primary Language: Qatari Preferred Spoken Language: Qatari Is interpretation needed?: No Sensory deficits: Other Additional sensory deficits: N/A Implanted or Applied Medical D: None Past Medical History PT HAS NOT HAD SURGERY, NO OVERALL HEALTH ISSUES Review of Systems Constitutional: see HPI EENTM: see HPI Respiratory: see HPI Gastrointestinal: see HPI Genitourinary: see HPI Musculoskeletal: see HPI Skin: see HPI Psychiatric/Neurological: See HPI All Other Systems Reviewed Negative Unless Noted: Yes Sepsis Event Evaluation Height, Weight, BMI Height: '" Weight: lbs. oz. kg; 34.84 BMI Method: Exam Exam Patient acknowledged, consented, and participated in this virtual visit which was conducted using real time audio/video Vital Signs Date Time Temp Pulse Resp B/P (MAP) Pulse Ox O2 Delivery O2 Flow Rate FiO2 03/16/21 09:22 91 Nasal Cannula 4.00 03/16/21 09:13 93 Nasal Cannula 3.00 03/16/21 09:10 92 Nasal Cannula 6.00 03/16/21 09:06 97 94 Nasal Cannula 6.00 9/24/21 09:00 37.3 111/75 (87) 91 OxyMask 10.00 03/16/21 08:55 93 71 117/71 (86) 86 OxyMask 10.00 03/16/21 08:53 93 OxyMask 10.00 03/16/21 08:52 91 OxyMask 15.00 03/16/21 08:50 37.6 75 85/40 (55) 89 Nasal Cannula 10.00 03/16/21 08:40 37.5 109 24 113/74 (87) 89 Nasal Cannula 3.00 03/16/21 03:59 36.3 92 20 123/70 (87) 95 Nasal Cannula 3.00 03/16/21 00:20 36.7 98 21 122/73 (89) 98 Nasal Cannula 3.00 03/15/21 20:00 Nasal Cannula 3.00 03/15/21 19:48 36.3 107 20 126/77 (93) 92 Nasal Cannula 3.00 03/15/21 19:13 95 Nasal Cannula 3.00 03/15/21 16:55 102 20 126/79 (95) 94 Nasal Cannula 3.00 03/15/21 12:00 104 18 95 Nasal Cannula 3.00 I & O 03/16/21 07:00 Intake Total 2160 ml Balance 2160 ml Height & Weight Height: '" Weight: lbs. oz. kg; 34.84 BMI Method: General Appearance: No Apparent Distress, WD/WN, Other HEENT: PERRL/EOMI, Pharynx Normal Neck: Full Range of Motion, Normal Inspection, Non Tender, Supple Respiratory: Chest Non Tender, No Accessory Muscle Use, No Respiratory Distress, Crackles, Decreased Breath Sounds Cardiovascular: Regular Rate, Rhythm, Normal Peripheral Pulses Capillary Refill: Less Than 3 Seconds Extremity: Normal Capillary Refill, Normal Inspection, Normal Range of Motion, Non Tender, No Calf Tenderness, No Pedal Edema Neurologic/Psychiatric: Alert, Oriented x3, No Motor/Sensory Deficits, Normal Mood/Affect, drying 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
[2021-03-16 11:02] LABS: ALBUMIN 3.2 GM/DL (3.2-4.5); POTASSIUM 3.5 MMOL/L (3.6-5.0)
[2021-03-16 11:03] LABS: CALCIUM 8.4 MG/DL (8.5-10.1)
[2021-03-16 11:04] LABS: TOTAL PROTEIN 5.8 GM/DL (6.4-8.2)
[2021-03-16 11:06] LABS: BILIRUBIN,TOTAL 0.3 MG/DL (0.1-1.0)
[2021-03-16 11:08] LABS: CREATININE SERUM 0.7 MG/DL (0.60-1.30)
[2021-03-16] MEDS ORDERED: cefTRIAXone 1,000 MG in WATER (STERILE) FOR INJECTION 10 ML IV ONE (11:30)
--- NOTE | 2021-03-16 12:46 | Diagnostic Imaging Report ---
PROCEDURE: CT angiography of the chest with contrast. TECHNIQUE: Multiple contiguous axial images were obtained through the chest after uneventful bolus administration of intravenous contrast. 3D reconstructed CTA MIP acquisitions were also performed. Auto Exposure Controls were utilized during the CT exam to meet ALARA standards for radiation dose reduction. INDICATION: Worsening hypoxia, pneumonia and pulmonary embolism. COMPARISON: 03/14/2021 FINDINGS: Heart size remains stable. There is no pericardial effusion. Pulmonary arteries and aorta are grossly normal. There is no embolism. There are worsening bilateral pulmonary infiltrates. This is most evident in the upper and lower lung zones. There is no pneumothorax or effusion. Osseous structures are unremarkable. Visualized upper abdominal solid organs are intact. There is a small hiatal hernia. IMPRESSION: 1. Overall slightly worsening bilateral pulmonary infiltrates. 2. No pulmonary embolism identified. 3. Small hiatal hernia. Dictated by: Dictated on workstation # [id number]
[2021-03-16] MEDS: MELATONIN 3 MG TABLET PO SCH (22:45)
[2021-03-17] VITALS (7 sets, daily range): BP systolic 100–140; BP diastolic 58–89
[2021-03-17] MEDS: ACETAMINOPHEN 325 MG TABLET PO SCH ×3 (01:26→17:43)
[2021-03-17] MEDS: LACTATED RINGERS 1,000 ML IV SCH ×3 (06:46→20:26)
[2021-03-17 07:35] LABS: HEMATOCRIT 37 % (35-52); HEMOGLOBIN 11.8 g/dL (11.5-16.0); MEAN CORPUSCULAR HEMOGLOBIN 30 pg (25-34); MEAN CORPUSCULAR HGB CONC 32 g/dL (32-36); MEAN CORPUSCULAR VOLUME 94 fL (80-99); PLATELET COUNT 368 10^3/uL (130-400); WHITE BLOOD COUNT 3.6 10^3/uL (4.3-11.0)
[2021-03-17 07:46] LABS: ALBUMIN 3.2 GM/DL (3.2-4.5)
[2021-03-17 07:48] LABS: CALCIUM 8.7 MG/DL (8.5-10.1)
[2021-03-17 07:51] LABS: BILIRUBIN,TOTAL 0.2 MG/DL (0.1-1.0)
[2021-03-17 07:53] LABS: CREATININE SERUM 0.6 MG/DL (0.60-1.30)
[2021-03-17] MEDS: LORazepam 0.5 MG (ATIVAN) TABLET PO PRN (08:38)
[2021-03-17] MEDS: cefTRIAXone 1,000 MG in WATER (STERILE) FOR INJECTION 10 ML IV SCH (08:38)
[2021-03-17] MEDS: ENOXAPARIN 40 MG/0.4 ML (LOVENOX) SYR SC SCH (08:38)
[2021-03-17] MEDS: FAMOTIDINE 20 MG (PEPCID) TABLET PO SCH ×2 (08:39→20:26)
[2021-03-17] MEDS: RT-ALBUTEROL HFA 8.5 GM INHALER IH SCH ×2 (08:42→21:07)
[2021-03-17 08:47] LABS: ABG BASE EXCESS 2.9 MMOL/L (-2.5-2.5); ABG OXYGEN SATURATION 98 % (94-100); ABG PCO2 42 MMHG (35-45); ABG PH 7.43 (7.37-7.43); ABG PO2 87 MMHG (79-93); ABG TCO2 28.4 MMOL/L (21.0-31.0)
[2021-03-17 08:48] LABS: ALLENS TEST POSITIVE; INSPIRED O2 8 L; PATIENT TEMP 36.3; VENTILATOR NO
[2021-03-17] MEDS: AZITHROMYCIN 250 MG/NS 250 ML IVPB IV SCH ×2 (10:04)
--- NOTE | 2021-03-17 14:05 | Progress Note ---
Subjective Date Seen by a Provider: Mar 17, 2021 Time Seen by a Provider: 14:01 Subjective/Events-last exam Fwup COVID 19 pneumonia with acute respiratory distress. Had to be put on Vapotherm this morning. Currently proning and oxygen saturation has improved. CT angiogram of chest yesterday did not show PE but did show worsening infiltrates bilaterally. Objective Exam Vital Signs Date Time Temp Pulse Resp B/P (MAP) Pulse Ox O2 Delivery O2 Flow Rate FiO2 03/17/21 13:02 36.0 87 20 108/62 (77) 98 03/17/21 12:15 97 High Flow N/C 4.00 03/17/21 12:00 36.3 109 22 128/89 (102) 92 High Flow N/C 8.00 03/17/21 08:51 99 High Flow N/C 6.00 03/17/21 08:43 95 High Flow N/C 6.00 03/17/21 08:00 High Flow N/C 4.00 03/17/21 07:57 36.3 109 22 128/89 (102) 92 High Flow N/C 8.00 03/17/21 04:01 35.8 76 18 140/74 (96) 94 High Flow N/C 4.00 03/16/21 23:45 36.7 99 18 121/68 (85) 92 High Flow N/C 4.00 03/16/21 21:33 90 High Flow N/C 5.00 03/16/21 20:00 High Flow N/C 4.00 03/16/21 19:10 36.4 98 20 113/65 (81) 92 High Flow N/C 4.00 03/16/21 15:32 36.5 98 20 115/65 (82) 90 High Flow N/C 4.00 I & O 03/17/21 07:00 Intake Total 2452 ml Balance 2452 ml Capillary Refill : Less Than 3 Seconds General Appearance: No Apparent Distress Respiratory: Lungs Clear, Decreased Breath Sounds Cardiovascular: Regular Rate, Rhythm Extremity: Non Tender, No Calf Tenderness, No Pedal Edema Neurologic/Psychiatric: Alert, Oriented x3 Results Lab Laboratory Tests 03/17/21 07:05: White Blood Count 3.6L, Red Blood Count 3.89, Hemoglobin 11.8, Hematocrit 37, Mean Corpuscular Volume 94, Mean Corpuscular Hemoglobin 30, Mean Corpuscular Hemoglobin Concent 32, Red Cell Distribution Width 12.9, Platelet Count 368, Mean Platelet Volume 10.0, Sodium Level 143, Potassium Level 4.0, Chloride Level 108H, Carbon Dioxide Level 24, Anion Gap 11, Blood Urea Nitrogen 6L, Creatinine 0.60, Estimat Glomerular Filtration Rate 109, BUN/Creatinine Ratio 10, Glucose Level 107H, Calcium Level 8.7, Corrected Calcium 9.3, Total Bilirubin 0.2, Aspartate Amino Transf (AST/SGOT) 81H, Alanine Aminotransferase (ALT/SGPT) 91H, Alkaline Phosphatase 55, Total Protein 6.0L, Albumin 3.2 03/17/21 08:34: Blood Gas Puncture Site LEFT RADIAL, Blood Gas Patient Temperature 36.3, Arterial Blood pH 7.43, Arterial Blood Partial Pressure CO2 42, Arterial Blood Partial Pressure O2 87, Arterial Blood HCO3 27, Arterial Blood Total CO2 28.4, Arterial Blood Oxygen Saturation 98, Arterial Blood Base Excess 2.9H, Anish Test POSITIVE, Blood Gas Ventilator Setting NO, Blood Gas Inspired Oxygen 8 L Assessment/Plan Assessment/Plan Assess & Plan/Chief Complaint 1. Acute COVID-19 Pneumonia--on lovenox for DVT prophylaxis, dexamethasone and actemra, albuterol inhaler, IS, also being covered with rocephin and zithromax for secondary pneumonia 2. Acute Respiratory Distress--on Vapotherm but now proning and oxygen sa turation has imroved SHAHRZAD MILLER DO Mar 17, 2021 14:05
[2021-03-17] MEDS: PROMETHAZINE/ CODEINE SYRUP 5 ML UDC PO PRN (20:25)
[2021-03-17] MEDS: MELATONIN 3 MG TABLET PO SCH (20:26)
[2021-03-18] MEDS: ACETAMINOPHEN 325 MG TABLET PO SCH ×3 (00:57→18:49)
[2021-03-18 04:19] VITALS: BP 129/82
[2021-03-18 07:02] LABS: HEMATOCRIT 39 % (35-52); HEMOGLOBIN 12.7 g/dL (11.5-16.0); MEAN CORPUSCULAR HEMOGLOBIN 30 pg (25-34); MEAN CORPUSCULAR HGB CONC 33 g/dL (32-36); MEAN CORPUSCULAR VOLUME 93 fL (80-99); MEAN PLATELET VOLUME 9.6 fL (9.0-12.2); PLATELET COUNT 414 10^3/uL (130-400); WHITE BLOOD COUNT 5.7 10^3/uL (4.3-11.0)
[2021-03-18 07:12] LABS: ALBUMIN 3.1 GM/DL (3.2-4.5); POTASSIUM 4.1 MMOL/L (3.6-5.0)
[2021-03-18 07:13] LABS: CALCIUM 8.6 MG/DL (8.5-10.1)
[2021-03-18 07:14] LABS: TOTAL PROTEIN 5.8 GM/DL (6.4-8.2)
[2021-03-18 07:16] LABS: BILIRUBIN,TOTAL 0.3 MG/DL (0.1-1.0)
[2021-03-18 07:18] LABS: CREATININE SERUM 0.63 MG/DL (0.60-1.30)
[2021-03-18] MEDS: RT-ALBUTEROL HFA 8.5 GM INHALER IH SCH ×2 (08:02→20:46)
[2021-03-18 08:20] VITALS: BP 94/54
--- NOTE | 2021-03-18 08:43 | Diagnostic Imaging Report ---
History: COVID pneumonia COMPARISON: 03/15/2021 TECHNIQUE: Frontal view the chest FINDINGS: Lung volumes are normal. There are extensive patchy airspace opacities throughout the lungs bilaterally, increased on the right and stable on the left. There is no pleural effusion or pneumothorax. The cardiac silhouette is normal in size. IMPRESSION: 1. Marked bilateral airspace opacities, increased on the right and stable on the left. Report was faxed to Daniel/RN Infection Control by noah at 8:42am. Dictated by: Dictated on workstation # [id number]
[2021-03-18] MEDS: FAMOTIDINE 20 MG (PEPCID) TABLET PO SCH ×2 (08:54→22:10)
[2021-03-18] MEDS: cefTRIAXone 1,000 MG in WATER (STERILE) FOR INJECTION 10 ML IV SCH (08:54)
[2021-03-18] MEDS: ENOXAPARIN 40 MG/0.4 ML (LOVENOX) SYR SC SCH (08:54)
[2021-03-18] MEDS: AZITHROMYCIN 250 MG/NS 250 ML IVPB IV SCH ×2 (08:55)
--- NOTE | 2021-03-18 09:50 | Progress Note ---
Subjective Date Seen by a Provider: Mar 18, 2021 Time Seen by a Provider: 09:48 Subjective/Events-last exam Fwup COVID 19 pneumonia with acute respiratory distress. Doing well with proning. Tramadol helped back pain. Feels a little better today. Objective Exam Vital Signs Date Time Temp Pulse Resp B/P (MAP) Pulse Ox O2 Delivery O2 Flow Rate FiO2 03/18/21 08:36 High Flow N/C 4.00 03/18/21 08:20 36.0 61 20 94/54 (67) 92 High Flow N/C 5.00 03/18/21 08:02 94 High Flow N/C 5.00 03/18/21 04:19 36.8 87 18 129/82 (98) 96 High Flow N/C 5.00 03/17/21 23:59 36.2 79 21 131/79 (96) 96 High Flow N/C 5.00 03/17/21 21:07 97 High Flow N/C 4.00 03/17/21 20:00 High Flow N/C 4.00 03/17/21 19:37 35.5 110 55 113/76 (88) 99 High Flow N/C 3.00 03/17/21 15:30 36.0 87 20 100/58 (72) 94 High Flow N/C 3.00 03/17/21 13:02 36.0 87 20 108/62 (77) 98 3.00 03/17/21 12:15 97 High Flow N/C 4.00 03/17/21 12:00 36.3 109 22 128/89 (102) 92 High Flow N/C 8.00 I & O 03/18/21 07:00 Intake Total 620 ml Balance 620 ml Capillary Refill : Less Than 3 Seconds General Appearance: No Apparent Distress Respiratory: Lungs Clear, Decreased Breath Sounds Cardiovascular: Regular Rate, Rhythm Extremity: Non Tender, No Calf Tenderness, No Pedal Edema Neurologic/Psychiatric: Alert, Oriented x3 Results Lab Laboratory Tests 03/18/21 06:54: White Blood Count 5.7, Red Blood Count 4.19, Hemoglobin 12.7, Hematocrit 39, Mean Corpuscular Volume 93, Mean Corpuscular Hemoglobin 30, Mean Corpuscular Hemoglobin Concent 33, Red Cell Distribution Width 12.5, Platelet Count 414H, Mean Platelet Volume 9.6, Sodium Level 141, Potassium Level 4.1, Chloride Level 105, Carbon Dioxide Level 25, Anion Gap 11, Blood Urea Nitrogen 11, Creatinine 0.63, Estimat Glomerular Filtration Rate 103, BUN/Creatinine Ratio 17, Glucose Level 103, Calcium Level 8.6, Corrected Calcium 9.3, Total Bilirubin 0.3, Aspartate Amino Transf (AST/SGOT) 73H, Alanine Aminotransferase (ALT/SGPT) 110H, Alkaline Phosphatase 50, Total Protein 5.8L, Albumin 3.1L Assessment/Plan Assessment/Plan Assess & Plan/Chief Complaint 1. Acute COVID-19 Pneumonia--on lovenox for DVT prophylaxis, dexamethasone and actemra, albuterol inhaler, IS, also being covered with rocephin and zithromax for secondary pneumonia 2. Acute Respiratory Distress--back to [place] at 4L, SHAHRZAD Millan DO Mar 18, 2021 09:50
[2021-03-18 11:48] VITALS: BP 126/77
[2021-03-18] MEDS: LACTATED RINGERS 1,000 ML IV SCH (12:30)
[2021-03-18 15:28] VITALS: BP 128/75
[2021-03-18 20:23] VITALS: BP 120/77
[2021-03-18] MEDS: MELATONIN 3 MG TABLET PO SCH (22:10)
[2021-03-18] MEDS: PROMETHAZINE/ CODEINE SYRUP 5 ML UDC PO PRN (22:11)
[2021-03-18 23:54] VITALS: BP 110/65
[2021-03-19] VITALS (7 sets, daily range): BP systolic 106–129; BP diastolic 63–79
[2021-03-19] MEDS: ACETAMINOPHEN 325 MG TABLET PO SCH ×4 (01:10→18:47)
[2021-03-19 06:23] LABS: HEMATOCRIT 40 % (35-52); HEMOGLOBIN 12.8 g/dL (11.5-16.0); MEAN CORPUSCULAR HEMOGLOBIN 30 pg (25-34); MEAN CORPUSCULAR HGB CONC 32 g/dL (32-36); MEAN CORPUSCULAR VOLUME 94 fL (80-99); MEAN PLATELET VOLUME 9.6 fL (9.0-12.2); PLATELET COUNT 471 10^3/uL (130-400); WHITE BLOOD COUNT 4.2 10^3/uL (4.3-11.0)
[2021-03-19 06:39] LABS: ALBUMIN 3.2 GM/DL (3.2-4.5); BILIRUBIN,TOTAL 0.3 MG/DL (0.1-1.0); CALCIUM 8.7 MG/DL (8.5-10.1); CREATININE SERUM 0.62 MG/DL (0.60-1.30); POTASSIUM 3.7 MMOL/L (3.6-5.0); TOTAL PROTEIN 5.9 GM/DL (6.4-8.2)
[2021-03-19] MEDS ORDERED: dexAMETHasone 6 MG TAB (DECADRON) PO SCH (07:00)
[2021-03-19] MEDS: RT-ALBUTEROL HFA 8.5 GM INHALER IH SCH (07:27)
[2021-03-19] MEDS: ENOXAPARIN 40 MG/0.4 ML (LOVENOX) SYR SC SCH (09:01)
[2021-03-19] MEDS: cefTRIAXone 1,000 MG in WATER (STERILE) FOR INJECTION 10 ML IV SCH ×2 (09:01→09:04)
[2021-03-19] MEDS: AZITHROMYCIN 250 MG TAB (ZITHROMAX) PO SCH (09:01)
[2021-03-19] MEDS: FAMOTIDINE 20 MG (PEPCID) TABLET PO SCH ×2 (09:01→21:28)
[2021-03-19] MEDS ORDERED: LIDOCAINE 1% INJ 20 ML 20 ML VIAL INJ ONE (09:45)
[2021-03-19] MEDS: LORazepam 0.5 MG (ATIVAN) TABLET PO PRN (10:14)
[2021-03-19] MEDS: cefTRIAXone 1,000 MG VIAL IM SCH (10:15)
--- NOTE | 2021-03-19 14:52 | Progress Note ---
Subjective Subjective 45 Y/O FEMALE WHO IS KNOWN TO ME FROM CLINIC. SHE PRESENTED TO THE HOSPITAL WITH COVID ON DAY 7 OF SYMPTOMS AND DAY 5 OF CONFIRMED DIAGNOSIS. - PHONE CALL AT 0850 THIS MORNING REPORTING THAT THE PATIENT WAS DOING WELL, GOT UP TO THE RESTROOM, FELT LIKE SHE WAS GOING TO PASS OUT AND SHE WAS LOWERED TO THE TOILET, BP WAS IN THE 80/50'S, OXYGEN AROUND 83%, AND SHE WAS PLACED ON 10 LITERS OXYGEN AND HELPED BACK TO HER CHAIR AT BEDSIDE. BY THE TIME THIS AGRICULTURAL EQUIPMENT TEST ENGINEER WAS IN THE ROOM, THE PATIENT WAS BACK TO OXYGEN LEVEL OF 92% ON 3 LITERS, WITH EFFORT OF MOVEMENT SHE DROPPED TO 88% SO SHE WAS BUMPED UP TO 4LITERS. PT DENIES ACUTE CHEST PAIN, BUT DOES HAVE SHORTNESS OF BREATH WITH CONVERSATION. SHE DENIES LEG PAIN, OR SWELLING. SHE REPORTS A SIGNIFICANT COUGHING EPISODE LAST NIGHT, BUT OTHERWISE HAD BEEN FEELING ABOUT THE SAME LEVEL OF ILLNESS ON ADMISSION. Review of Systems General: No Chills; Fatigue, Malaise, Appetite (DECREASED) HEENT: No Head Aches Pulmonary: Dyspnea, Cough Cardiovascular: No: Chest Pain, Palpitations Gastrointestinal: No: Nausea, Vomiting, Abdominal Pain, Diarrhea Genitourinary: No Dysuria; Frequency Musculoskeletal: No: back pain, leg pain Neurological: Weakness; No: Confusion All Other Systems Reviewed All Other Systems Reviewed: Yes Objective Exam Vital Signs Vital Signs Date Time Temp Pulse Resp B/P (MAP) Pulse Ox O2 Delivery O2 Flow Rate FiO2 03/19/21 12:00 35.6 85 20 122/73 (89) 95 High Flow N/C 3.00 03/19/21 08:09 35.8 92 20 114/67 (83) 94 High Flow N/C 4.50 03/19/21 08:00 High Flow N/C 3.00 03/19/21 07:28 96 High Flow N/C 4.00 03/19/21 03:10 36.0 78 20 106/74 (85) 95 High Flow N/C 4.50 03/18/21 23:54 36.0 79 20 110/65 (80) 93 High Flow N/C 3.00 03/18/21 20:46 90 High Flow N/C 3.00 03/18/21 20:23 35.6 81 22 120/77 (91) 91 High Flow N/C 3.00 03/18/21 20:00 High Flow N/C 3.00 03/18/21 15:28 35.7 88 22 128/75 (92) 94 High Flow N/C 3.00 I & O 03/19/21 07:00 Intake Total 1360 ml Balance 1360 ml General Appearance: No Apparent Distress Eyes: Bilateral Eye Normal Inspection, Bilateral Eye PERRL, Bilateral Eye EOMI HEENT: PERRL/EOMI, Pharynx Normal Neck: Full Range of Motion, Normal Inspection, Non Tender, Supple Respiratory: Lungs Clear, Decreased Breath Sounds Cardiovascular: Regular Rate, Rhythm Gastrointestinal: Normal Bowel Sounds, No Organomegaly, No Pulsatile Mass, Non Tender, Soft Rectal: Deferred Extremity: Non Tender, No Calf Tenderness, No Pedal Edema Neurologic/Psychiatric: Alert, Oriented x3 Skin: Pallor Lymphatic: No Adenopathy Results Lab Laboratory Tests 03/19/21 06:05: White Blood Count 4.2L, Red Blood Count 4.28, Hemoglobin 12.8, Hematocrit 40, Mean Corpuscular Volume 94, Mean Corpuscular Hemoglobin 30, Mean Corpuscular Hemoglobin Concent 32, Red Cell Distribution Width 12.4, Platelet Count 471H, Mean Platelet Volume 9.6, Sodium Level 141, Potassium Level 3.7, Chloride Level 104, Carbon Dioxide Level 27, Anion Gap 10, Blood Urea Nitrogen 12, Creatinine 0.62, Estimat Glomerular Filtration Rate 105, BUN/Creatinine Ratio 19, Glucose Level 92, Calcium Level 8.7, Corrected Calcium 9.3, Total Bilirubin 0.3, Aspar sosa Amino Transf (AST/SGOT) 33, Alanine Aminotransferase (ALT/SGPT) 89H, Alkaline Phosphatase 52, Total Protein 5.9L, Albumin 3.2 Assessment/Plan Assessment/Plan Admission Dx ACUTE RESPIRATORY DISTRESS DUE TO COVID-19 INFECTION COUGH COVID PNEUMONIA HYPOXIA HYPOCOAGULABLE STATE DUE TO CHRONIC HORMONE USE, COVID INFECTION WEAKNESS MYALGIAS Assessment and Plan ACUTE RESPIRATORY DISTRESS DUE TO COVID-19 INFECTION COUGH COVID PNEUMONIA HYPOXIA HYPOCOAGULABLE STATE DUE TO CHRONIC HORMONE USE, COVID INFECTION WEAKNESS MYALGIAS NEAR SYNCOPE HYPOTENSION WORSENING ACUTE RESPIRATORY DISTRESS DUE TO COVID-19 INFECTION WITH COUGH AND COVID PNEUMONIA WITH ACUTE HYPOXIA - PT ON DEXAMETHASONE, BREATHING TREATMENTS, AND AZITHROMYCIN ADDING ROCEPHIN TODAY ADDED ACTEMRA TODAY WELL WITH ACUTE EPISODE OF HYPOXIA - PT TO GO DOWN FOR STAT CT ANGIO OF CHEST TO LOOK FOR PULMONARY EMBOLISM - CONSULT WITH PARTS COUNTER CLERK - DR. GERA HENSON - DISCUSSION OF CASE - AGREED WITH STAT CT ANGIO, ACTEMRA, CONTINUED STEROIDS, IF SYMPTOMS WORSEN WILL TRANSFER TO ICU. HYPOCOAGULABLE STATE DUE TO CHRONIC HORMONE USE, COVID INFECTION - LOVENOX AND SCD'S - ADVISED PT THAT WE WILL HOLD HER CONTROL FOR THE NEXT FEW MONTHS WEAKNESS - WAITING ON IMPROVED PULMONARY STATUS AT THIS TIME. MYALGIAS - SHOULD IMPROVE WITH HYDRATION ACUTELY WORSENING SYMPTOMS - I HAVE DISCUSSED THE PATIENT WITH HER SPOUSE, HE IS IN AGREEMENT WITH CURRENT MANAGEMENT PLAN, THANKFUL FOR THE PHONE CALL, REQUESTS UPDATES THINGS CHANGE. ADVISED PT AND SPOUSE THAT DR. MILLER IS COMPUTER METEOROLOGIST FOR ME THIS WEEKEND. DVT PROPHYLAXIS WITH LOVENOX AND SCD'S GI PROPHYLAXIS WITH PEPCID Admission Dx ACUTE RESPIRATORY DISTRESS DUE TO COVID-19 INFECTION COUGH COVID PNEUMONIA HYPOXIA HYPOCOAGULABLE STATE DUE TO CHRONIC HORMONE USE, COVID INFECTION WEAKNESS MYALGIAS Clinical Quality Measures Admission Status Admission Dx ACUTE RESPIRATORY DISTRESS DUE TO COVID-19 INFECTION COUGH COVID PNEUMONIA HYPOXIA HYPOCOAGULABLE STATE DUE TO CHRONIC HORMONE USE, COVID INFECTION WEAKNESS MYALGIAS EDSON FIORE MD Mar 19, 2021 14:52
--- NOTE | 2021-03-19 16:05 | Pulmonary Consultation ---
History of Present Illness History of Present Illness Date Seen by Provider: Mar 19, 2021 Time Seen by Provider: 15:59 History of Present Illness Has COVID, Dx made 03/07, having cough, temp, body aches, Not SOB until 03/13, now 3 lpm nasal cannula Did not get vaccine. Gets out of bed and has mild SOB On Decasron, Received tocilizumab, on IV azithromycin, Rocephin d dimer slightly high, no rise in WBC, non smoker PMH no asthma, DM, HTN, HLD, heart problems, CAROL Allergies and Home Medications Allergies Coded Allergies: No Known Drug Allergies (Verified , 03/14/21) Home Medications Albuterol Sulfate 6.7 Gm Hfa.aer.ad, 1-2 PUFF INH Q4H PRN for SHORTNESS OF BREATH, (Reported) Dexamethasone 0.5 Mg Tablet, 0.5 MG PO BID, (Reported) FILLED 03-12-2021 #10/5 DAY SUPPLY Fesoterodine Fumarate 4 Mg Tab.sr.24h, 4 MG PO 1800 W/DINNER, (Reported) Ibuprofen 200 Mg Capsule, 400-600 MG PO Q8H PRN for PAIN-MILD (1-4) OR TEMPATURE, (Reported) Nitrofurantoin Macrocrystal 100 Mg Capsule, 100 MG PO 1800 W/DINNER, (Reported) Norgestimate-Ethinyl Estradiol 1 Each Tablet, 1 EA PO 1800, (Reported) Ondansetron HCl 4 Mg Tablet, 4 MG PO Q6H PRN for NAUSEA/VOMITING-1ST LINE, (Reported) Past Medical/Social/Family Hx Patient Social History Marrital Status: Number of Children: 1 Number of living children: 1 Living Status: LIVES AT HOME WITH SPOUSE AND SON Employed/Student: employed ([employer]) Tobacco Use?: No Smoking Status: Never a Smoker Smokeless Tobacco Frequency: Never a User Use of E-Cig and/or Vaping dev: No Substance use?: No Alcohol Use?: No Pt stated abuse/neglect: No Immunizations Up To Date Influenza Vaccine Up-to-Date: No; Not Current Tetanus Booster (TDap): Unknown Hepatitis A: No Hepatitis B: No TB Skin Test: None Current Status status: No status: No Advance Directives: No Communicates: Verbally Primary Language: Martiniquais Preferred Spoken Language: Martiniquais Is interpretation needed?: No Sensory deficits: Other Additional sensory deficits: N/A Implanted or Applied Medical D: None Past Medical History PT HAS NOT HAD SURGERY, NO OVERALL HEALTH ISSUES Review of Systems Constitutional: see HPI EENTM: see HPI Respiratory: see HPI Cardiovascular: see HPI Gastrointestinal: No RUQ, No LUQ, No RLQ, No LLQ, No no symptoms reported, No see HPI, No abdominal pain, No constipation, No diarrhea, No dysphagia, No hematemesis, No heartburn, No jaundice, No loss of appetite, No melena, No nausea, No vomiting, No other Genitourinary: see HPI Musculoskeletal: see HPI Skin: see HPI Psychiatric/Neurological: See HPI Sepsis Event Evaluation Height, Weight, BMI Height: '" Weight: lbs. oz. kg; 34.84 BMI Method: Exam Exam Patient acknowledged, consented, and participated in this virtual visit which was conducted using real time audio/video Vital Signs Date Time Temp Pulse Resp B/P (MAP) Pulse Ox O2 Delivery O2 Flow Rate FiO2 03/19/21 12:00 35.6 85 20 122/73 (89) 95 High Flow N/C 3.00 03/19/21 08:09 35.8 92 20 114/67 (83) 94 High Flow N/C 4.50 03/19/21 08:00 High Flow N/C 3.00 03/19/21 07:28 96 High Flow N/C 4.00 03/19/21 03:10 36.0 78 20 106/74 (85) 95 High Flow N/C 4.50 03/18/21 23:54 36.0 79 20 110/65 (80) 93 High Flow N/C 3.00 03/18/21 20:46 90 High Flow N/C 3.00 03/18/21 20:23 35.6 81 22 120/77 (91) 91 High Flow N/C 3.00 03/18/21 20:00 High Flow N/C 3.00 I & O 03/19/21 06:59 Intake Total 1360 ml Balance 1360 ml Height & Weight Height: '" Weight: lbs. oz. kg; 34.84 BMI Method: General Appearance: No Apparent Distress HEENT: PERRL/EOMI, Pharynx Normal Neck: Full Range of Motion, Normal Inspection, Non Tender, Supple Respiratory: Decreased Breath Sounds, Rales, Other (crackles both lower lobes) Cardiovascular: Regular Rate, Rhythm Capillary Refill: Less Than 3 Seconds Extremity: Non Tender, No Calf Tenderness, No Pedal Edema Neurologic/Psychiatric: Alert, Oriented x3 Skin: Pallor Lymphatic: No Adenopathy Results Lab Laboratory Tests 03/18/21 06:54 03/19/21 06:05 Assessment/Plan Assessment/Plan Fairly extensive lung involvement on CXR and CT, would continue present meds, keep monitoring oxygenation, Fact that she in only on 3 lpm and feels she is improving is encouraging Will follow Time spent with patient (mins): 30 SHAKIR WARD MD Mar 19, 2021 16:05
[2021-03-19] MEDS: PROMETHAZINE/ CODEINE SYRUP 5 ML UDC PO PRN (21:27)
[2021-03-19] MEDS: MELATONIN 3 MG TABLET PO SCH (21:28)
[2021-03-20] MEDS: ACETAMINOPHEN 325 MG TABLET PO SCH ×2 (01:34→08:57)
[2021-03-20 04:00] VITALS: BP 136/86
[2021-03-20 06:04] LABS: HEMATOCRIT 42 % (35-52); HEMOGLOBIN 13.7 g/dL (11.5-16.0); MEAN CORPUSCULAR HEMOGLOBIN 30 pg (25-34); MEAN CORPUSCULAR HGB CONC 32 g/dL (32-36); MEAN CORPUSCULAR VOLUME 93 fL (80-99); MEAN PLATELET VOLUME 9.5 fL (9.0-12.2); PLATELET COUNT 483 10^3/uL (130-400); WHITE BLOOD COUNT 5.4 10^3/uL (4.3-11.0)
[2021-03-20 06:19] LABS: ALBUMIN 3.4 GM/DL (3.2-4.5); BILIRUBIN,TOTAL 0.4 MG/DL (0.1-1.0); CALCIUM 9.1 MG/DL (8.5-10.1); CREATININE SERUM 0.67 MG/DL (0.60-1.30); POTASSIUM 4.1 MMOL/L (3.6-5.0); TOTAL PROTEIN 6.2 GM/DL (6.4-8.2)
[2021-03-20] MEDS: RT-ALBUTEROL HFA 8.5 GM INHALER IH SCH (07:31)
[2021-03-20 08:12] VITALS: BP 120/68
[2021-03-20] MEDS: FAMOTIDINE 20 MG (PEPCID) TABLET PO SCH (08:56)
[2021-03-20] MEDS: ENOXAPARIN 40 MG/0.4 ML (LOVENOX) SYR SC SCH (08:56)
[2021-03-20] MEDS: AZITHROMYCIN 250 MG TAB (ZITHROMAX) PO SCH (08:56)
[2021-03-20] MEDS: cefTRIAXone 1,000 MG VIAL IM SCH (08:57)
[2021-03-20] MEDS ORDERED: LIDOCAINE 1% INJ 20 ML 20 ML VIAL INJ SCH (09:00)
--- NOTE | 2021-03-20 09:27 | Discharge Summary ---
Diagnosis/Chief Complaint Date of Admission Mar 14, 2021 at 05:13 Date of Discharge Reason Hospital Visit PT IS A 45 Y/O FEMALE WHO IS KNOWN TO MY CLINIC. SHE PRESENTED TO THE HOSPITAL AFTER HAVING AN ACUTE EPISODE OF SHORTNESS OF BREATH WITH NAUSEA LAST NIGHT. SHE WAS FIRST STRUCK ILL WITH COVID SYMPTOMS AROUND 03/07/2021, DIAGNOSED WITH COVID ON 03/10/2021. UPON EVALUATION IN THE ER SHE WAS FOUND TO HAVE AN OXYGEN SATURATION OF 91%, AND AFTER A NEBULIZER TREATMENT HER OXYGEN DROPPED TO 89%. PT WAS ALSO FOUND TO HAVE AN ELEVATED D-DIMER - NEGATIVE CTA. THIS MORNING SHE REPORTS THAT SHE FEELS BETTER THAN ON ADMISSION, JUST EXTREMELY FATIGUED. SHE DENIES ABDOMINAL PAIN, NAUSEA, CHEST PAIN, HAS BEEN HAVING ISSUES FOR A FEW MONTHS WITH HER MENSTRUAL CYCLES, AND HAS BEEN TAKING HER CONTROL REGULARLY. Discharge Summary Discharge Physical Examination Allergies: Coded Allergies: No Known Drug Allergies (Verified , 03/14/21) Vitals & I&Os Vital Signs Date Time Temp Pulse Resp B/P (MAP) Pulse Ox O2 Delivery O2 Flow Rate FiO2 03/20/21 08:12 36.4 98 20 120/68 (85) 92 High Flow N/C 3.00 Hospital Course Pending Labs Laboratory Tests 03/20/21 05:55: White Blood Count 5.4, Red Blood Count 4.55, Hemoglobin 13.7, Hematocrit 42, Mean Corpuscular Volume 93, Mean Corpuscular Hemoglobin 30, Mean Corpuscular Hem oglobin Concent 32, Red Cell Distribution Width 12.1, Platelet Count 483, Mean Platelet Volume 9.5, Sodium Level 139, Potassium Level 4.1, Chloride Level 105, Carbon Dioxide Level 22, Anion Gap 12, Blood Urea Nitrogen 13, Creatinine 0.67, Estimat Glomerular Filtration Rate 96, BUN/Creatinine Ratio 19, Glucose Level 94, Calcium Level 9.1, Corrected Calcium 9.6, Total Bilirubin 0.4, Aspartate Amino Transf (AST/SGOT) 71, Alanine Aminotransferase (ALT/SGPT) 119, Alkaline Phosphatase 53, Total Protein 6.2, Albumin 3.4 Discharge Instructions to patient/family Please see electronic discharge instructions given to patient. Discharge Medications Reviewed and agree with Discharge Medication list on patient's Discharge Instruction sheet EDSON FIORE MD Mar 20, 2021 09:27
[2021-03-20] MEDS ORDERED: DEXA4TAB PO (11:20)
[2021-03-20] MEDS ORDERED: Albuterol Inhaler IH (11:20)
[2021-03-20] MEDS ORDERED: FAMO20TA5 PO (11:20)
[2021-03-20] MEDS ORDERED: Promethazine/Codeine PO (11:20)
--- NOTE | 2021-03-20 11:22 | Discharge Inst-Simple/Standard ---
Discharge Inst-Standard Reconcile Patient Problems Problems Reviewed?: Yes Discharge Medications New, Converted or Re-Newed RX: Call to Patients Pharmacy Patient Instructions/Follow Up Plan of Care/Instructions/FU: 1 wk follow up [facility] Activity as Tolerated: Yes Discharge Diet: Regular Diet Return to The Hospital For: any worsening shortness of breath or worsening symptoms EDSON FIORE MD Mar 20, 2021 11:22
[2021-03-20 12:29] VITALS: BP 118/74
--- NOTE | 2021-03-20 12:51 | Pulmonary Progress Note ---
Subjective Date Seen by a Provider: Mar 20, 2021 Time Seen by a Provider: 13:09 Subjective/Events-last exam No issues overnight. Feels her breathing is stable. Going home today Sepsis Event Evaluation Height, Weight, BMI Height: '" Weight: lbs. oz. kg; 34.84 BMI Method: Exam Exam Patient acknowledged, consented, and participated in this virtual visit which was conducted using real time audio/video Vital Signs Date Time Temp Pulse Resp B/P (MAP) Pulse Ox O2 Delivery O2 Flow Rate FiO2 03/20/21 12:29 36.7 84 20 118/74 (89) 94 High Flow N/C 3.00 03/20/21 08:12 36.4 98 20 120/68 (85) 92 High Flow N/C 3.00 03/20/21 08:00 High Flow N/C 3.00 03/20/21 07:31 92 High Flow N/C 3.00 03/20/21 04:00 36.1 83 18 136/86 (103) 93 High Flow N/C 3.00 03/19/21 23:30 35.7 71 18 129/79 (96) 95 High Flow N/C 3.00 03/19/21 21:10 93 High Flow N/C 3.00 03/19/21 20:02 36.2 94 18 112/78 (89) 91 High Flow N/C 3.00 03/19/21 20:00 High Flow N/C 4.00 03/19/21 15:30 36.2 99 18 118/74 (89) 93 High Flow N/C 3.00 I & O 03/20/21 07:00 Intake Total 1250 ml Balance 1250 ml Height & Weight Height: '" Weight: lbs. oz. kg; 34.84 BMI Method: General Appearance: No Apparent Distress HEENT: PERRL/EOMI, Pharynx Normal Neck: Full Range of Motion, Normal Inspection, Non Tender, Supple Respiratory: Decreased Breath Sounds (Dimnished breath sounds on right), Rales, Other (crackles both lower lobes) Cardiovascular: Regular Rate, Rhythm Capillary Refill: Less Than 3 Seconds Extremity: Non Tender, No Calf Tenderness, Other (Trace edema) Neurologic/Psychiatric: Alert, Oriented x3 Skin: Pallor Lymphatic: No Adenopathy Results Lab Laboratory Tests 03/19/21 06:05 03/20/21 05:55 Assessment/Plan Assessment/Plan 45 y/o F with hx of COVID dx in January. PUlmonary consulted regarding long COVID symptoms. -Noted to have persistent lung involvement on CXR and CT however symptomatically improving -Would continue present meds and titrate oxygen as tolerated. -Patient to be discharged home today. Recommend outpatent pulmonary followup HOMA GARAY MD Mar 20, 2021 12:51
[2021-03-20 13:39] VITALS: BP 118/74
== END 2021-03-20 13:35 | disposition home or self-care (01) | DRG 177 ==
LOC: EDUNIT# 00:45 → ER 00:48 → 4TH 05:13
PROVIDERS: ADMIT Family Medicine; ATTEND Family Medicine
DX: U07.1 COVID-19 (principal); J12.82 Pneumonia due to coronavirus disease 2019; J96.01 Acute respiratory failure with hypoxia; D68.69 Other thrombophilia; Z79.899 Other long term (current) drug therapy; R11.2 Nausea with vomiting, unspecified; Z73.0 Burn-out; R53.1 Weakness; M79.10 Myalgia, unspecified site; I95.9 Hypotension, unspecified
CPT/HCPCS: 36415; 36600; 71045; 71275; 80053; 82805; 82947; 83735; 84145; 84703; 85025; 85027; 85379; 86141; 94640; 94760; 94761; 96361; 96365; 96375

== ENCOUNTER → 2021-05-03 | Outpatient (CLI) | payer BC ==
[~2021-05-03] MED LIST: Albuterol Inhaler IH; DEXA0.5T PO; DEXA4TAB PO; FAMO20TA5 PO; FESO4TAB PO; IBUP-2185 PO; NITR100C PO; NORG1TAB75 PO; ONDA-105 PO; Promethazine/Codeine PO; RT-ALBUINH INH
--- NOTE | 2021-05-03 08:53 | Diagnostic Imaging Report ---
EXAMINATION: Chest 2 view HISTORY: History of COVID 19 COMPARISON: 03/18/2021 FINDINGS: Heart size and pulmonary vasculature are normal. The lungs are clear without consolidation, pleural effusion, or pneumothorax. Previously seen patchy interstitial and airspace opacities from 03/18/2021 have resolved. The osseous structures are intact. IMPRESSION: 1. No acute radiographic abnormality in the chest. Dictated by: Dictated on workstation # [id number]
== END ==
LOC: RAD 08:20
PROVIDERS: ATTEND Internal Medicine Cardiovascular Disease
DX: Z86.16 Personal history of COVID-19 (principal)
CPT/HCPCS: 71046

== ENCOUNTER → 2021-05-11 | Outpatient (CLI) | payer BC | LOC: CARD 14:00 | PROVIDERS: ATTEND Internal Medicine Cardiovascular Disease | DX: R00.0 Tachycardia, unspecified (principal) | CPT/HCPCS: 93306 ==

== ENCOUNTER → 2021-05-11 | Outpatient (CLI) | payer BC ==
--- NOTE | 2021-05-11 16:22 | Diagnostic Imaging Report ---
INDICATION: Routine screening. COMPARISON: Prior mammograms of 05/03/2020 and 04/30/2019. EXAMINATION: 2D and 3D bilateral screening mammography was performed with CAD. The current study was also evaluated with a Computer Aided Detection (CAD) system. FINDINGS: Both breasts are heterogeneously dense, limiting the sensitivity of mammography. The parenchymal pattern is stable. No mass or malignant-appearing microcalcifications are seen. Axillae are unremarkable. IMPRESSION: No mammographic features suspicious for malignancy are identified. ACR BI-RADS Category 1: Negative. Result letter will be mailed to the patient. Note: At least 10% of breast cancer is not imaged by mammography. Dictated by: Dictated on workstation # [id number]
== END ==
LOC: RAD 13:53
PROVIDERS: ATTEND Nurse Practitioner Family
DX: Z12.31 Encounter for screening mammogram for malignant neoplasm of breast (principal)
CPT/HCPCS: 77063; 77067

== ENCOUNTER → 2021-06-18 | Outpatient (CLI) | payer BC ==
[~2021-06-18] MED LIST changes: +RT-ALBUTEROL SULF 2.5 MG/3 ML PRE-MIX VIAL INH ONE
== END ==
LOC: RT 14:15
PROVIDERS: ATTEND Family Medicine
DX: R06.09 Other forms of dyspnea (principal); Z86.16 Personal history of COVID-19
CPT/HCPCS: 94060; 94726; 94729

== ENCOUNTER → 2022-06-07 | Outpatient (CLI) | payer BC ==
[~2022-06-07] MED LIST changes: -RT-ALBUTEROL SULF 2.5 MG/3 ML PRE-MIX VIAL INH ONE
--- NOTE | 2022-06-07 10:50 | Diagnostic Imaging Report ---
Indication: Routine screening. Comparison is made with prior mammograms from 05/11/2021 and 05/03/2020. 2-D and 3-D bilateral screening mammography was performed with CAD. Both breasts are heterogeneously dense, limiting the sensitivity of mammography. No mass or malignant-appearing microcalcifications are seen. Axillae are unremarkable. IMPRESSION: BI-RADS Category 1 No mammographic features suspicious for malignancy are identified. ACR BI-RADS Category 1: Negative. Result letter will be mailed to the patient. Note: At least 10% of breast cancer is not imaged by mammography. Dictated by: Dictated on workstation # [id number]
== END ==
LOC: RAD 08:51
PROVIDERS: ATTEND Family Medicine
DX: Z12.31 Encounter for screening mammogram for malignant neoplasm of breast (principal)
CPT/HCPCS: 77063; 77067